=== PATIENT | male | born 1965 | race Caucasian/White ===

== ENCOUNTER 2021-04-21 10:45 | Inpatient (IN) | payer BC, OTHER ==
[2021-04-21] MEDS ORDERED: Sodium Chloride 0.9% 10 ML Syringe FLUSH PRN ×2 (11:09→14:42)
[2021-04-21 11:53] LABS: CORONAVIRUS COVID-19 NAA POSITIVE (NEGATIVE)
--- NOTE | 2021-04-21 11:59 | EDM.PDOC ---
ED HPI GENERAL MEDICAL PROBLEM - General Chief Complaint: Respiratory Problem Stated Complaint: SHORTNESS OF BREATH Time Seen by Provider: 04/21/21 11:00 Source of Information: Reports: Patient, Old Records History Limitations: Reports: No Limitations - History of Present Illness INITIAL COMMENTS - FREE TEXT/NARRATIVE: 55 yo male here with several days of progressive SOB. No hx of lung dz. No fever. No Covid vaccines. Has not been to the doctor since he got ill. Onset: Gradual Duration: Day(s): (approx 5), Getting Worse Location: Reports: Chest Quality: Reports: Other (no pain) Severity: Moderate Improves with: Reports: None Worsens with: Reports: Other (time or exertion) Context: Reports: Other (see HPI) Associated Symptoms: Reports: Loss of Appetite, Malaise, Shortness of Breath. Denies: Diaphoresis Treatments INSTRUMENT ADJUSTER: Reports: Other (see below) (none) - Related Data Allergies Allergy/AdvReac Type Severity Reaction Status Date / Time No Known Allergies Allergy Verified 04/21/21 10:51 Home Meds: Home Meds NK [No Known Home Meds] 04/21/21 [History] Past Medical History - Past Health History Medical/Surgical History: Denies Medical/Surgical History Social & Family History - Tobacco Use Tobacco Use Status *Q: Never Tobacco User - Caffeine Use Caffeine Use: Reports: Coffee - Recreational Drug Use Recreational Drug Use: No ED ROS GENERAL - Review of Systems Review Of Systems: See Below Constitutional: Reports: Malaise, Weakness HEENT: Reports: No Symptoms Respiratory: Reports: Shortness of Breath, Cough Cardiovascular: Reports: No Symptoms GI/Abdominal: Reports: Anorexia : Reports: No Symptoms Musculoskeletal: Reports: No Symptoms Skin: Reports: No Symptoms ED EXAM, GENERAL - Physical Exam Exam: See Below Exam Limited By: No Limitations General Appearance: Alert, WD/WN, Mild Distress Eye Exam: Bilateral Eye: Normal Inspection Ears: Normal External Exam, Normal Canal, Hearing Grossly Normal Ear Exam: Bilateral Ear: Auricle Normal, Canal Normal Nose: Normal Inspection, No Blood Throat/Mouth: Normal Inspection, Normal Lips, Normal Oropharynx, Normal Voice, No Airway Compromise Head: Atraumatic, Normocephalic Neck: Normal Inspection Respiratory/Chest: Crackles, Other (tachypnea). No: No Respiratory Distress, Lungs Clear, Normal Breath Sounds Cardiovascular: Regular Rate, Rhythm, Tachycardia GI/Abdominal: Soft, Non-Tender Back Exam: Normal Inspection Extremities: Normal Inspection, Normal Range of Motion, Non-Tender, No Pedal Edema Neurological: Alert, Oriented, CN II-XII Intact, Normal Cognition, No Motor/Sensory Deficits Psychiatric: Normal Affect, Normal Mood Skin Exam: Warm, Dry, Intact, Normal Color, No Rash Course - Vital Signs Text/Narrative:: Dr. Mahajan called @ 1209h Last Recorded V/S: Last Vital Signs Temp 36.6 C 04/21/21 10:49 Pulse 89 04/21/21 13:27 Resp 20 04/21/21 10:51 BP 122/71 04/21/21 13:27 Pulse Ox 98 04/21/21 13:27 - Orders/Labs/Meds Orders: Active Orders 24 hr Category Date Time Status Patient Status Manage Transfer [TRANSFER] Routine ADT 04/21/21 12:45 Active Ang Chest [CT] Stat Exams 04/21/21 11:58 Ordered UA W/MICROSCOPIC [URIN] Stat Lab 04/21/21 11:09 Ordered Iopamidol [Isovue-370 (76%)] Med 04/21/21 14:00 Active 78 ml IV . DIRECTED Sodium Chloride 0.9% [Saline Flush] Med 04/21/21 11:09 Active 10 ml FLUSH ASDIRECTED PRN Saline Lock Insert [OM.PC] Routine Oth 04/21/21 11:09 Ordered Resuscitation Status Routine Resus Stat 04/21/21 12:46 Ordered Medication Orders Iopamidol (Iopamidol 755 Mg/Ml 100 Ml Bottle) 78 ml IV . DIRECTED BRENDA Stop: 04/21/21 15:00 Sodium Chloride (Sodium Chloride 0.9% 10 Ml Syringe) 10 ml FLUSH ASDIRECTED PRN PRN Reason: Keep Vein Open Labs: Laboratory Tests 04/21/21 04/21/21 04/21/21 Range/Units 11:03 11:19 11:19 WBC 13.5 H (4.5-11.0) K/uL RBC 4.06 L (4.30-5.90) M/uL Hgb 8.4 L (12.0-15.0) g/dL Hct 30.7 L (40.0-54.0) % MCV 76 L (80-98) fL MCH 21 L (27-31) pg MCHC 27 L (32-36) % Plt Count 241 (150-400) K/uL D-Dimer, Quantitative > 47914.00 H (0.0-500.0) ng/mL Sodium (140-148) mmol/L Potassium (3.6-5.2) mmol/L Chloride (100-108) mmol/L Carbon Dioxide (21-32) mmol/L Anion Gap (5.0-14.0) mmol/L BUN (7-18) mg/dL Creatinine (0.8-1.3) mg/dL Est Cr Clr Drug Dosing mL/min Estimated GFR (MDRD) (>60) Glucose (74-106) mg/dL Calcium (8.5-10.1) mg/dL C-Reactive Protein (0.0-0.3) mg/dL Influenza Type A RNA Negative (NEGATIVE) RSV RNA (INAAT) Negative (NEGATIVE) Influenza Type B RNA Negative (NEGATIVE) SARS-CoV-2 RNA (MELIDA) Positive H (NEGATIVE) 04/21/21 Range/Units 11:19 WBC (4.5-11.0) K/uL RBC (4.30-5.90) M/uL Hgb (12.0-15.0) g/dL Hct (40.0-54.0) % MCV (80-98) fL MCH (27-31) pg MCHC (32-36) % Plt Count (150-400) K/uL D-Dimer, Quantitative (0.0-500.0) ng/mL Sodium 142 (140-148) mmol/L Potassium 3.6 (3.6-5.2) mmol/L Chloride 104 (100-108) mmol/L Carbon Dioxide 25 (21-32) mmol/L Anion Gap 12.7 (5.0-14.0) mmol/L BUN 15 (7-18) mg/dL Creatinine 1.0 (0.8-1.3) mg/dL Est Cr Clr Drug Dosing 73.46 mL/min Estimated GFR (MDRD) > 60 (>60) Glucose 184 H (74-106) mg/dL Calcium 8.2 L (8.5-10.1) mg/dL C-Reactive Protein 14.63 H (0.0-0.3) mg/dL Influenza Type A RNA (NEGATIVE) RSV RNA (INAAT) (NEGATIVE) Influenza Type B RNA (NEGATIVE) SARS-CoV-2 RNA (MELIDA) (NEGATIVE) Meds: Medications Generic Name Dose Route Start Last Admin Trade Name Bryan PRN Reason Stop Dose Admin Iopamidol 78 ml 04/21/21 14:00 Iopamidol 755 Mg/Ml 100 Ml Bottle IV 04/21/21 15:00 . DIRECTED BRENDA Sodium Chloride 10 ml 04/21/21 11:09 Sodium Chloride 0.9% 10 Ml Syringe FLUSH ASDIRECTED PRN Keep Vein Open Discontinued Medications Generic Name Dose Route Start Last Admin Trade Name Freq PRN Reason Stop Dose Admin Sodium Chloride 100 mls @ 3.5 mls/sec 04/21/21 14:00 Normal Saline IV 04/21/21 14:01 ASDIRECTED BRENDA Sodium Chloride 10 ml 04/21/21 13:58 Sodium Chloride 0.9% 10 Ml Syringe FLUSH 04/21/21 13:59 ONETIME ONE - Radiology Interpretation Free Text/Narrative:: CTA chest- CT Results Date: 04/21/21 Departure - Departure Time of Disposition: 14:40 Disposition: Admitted As Inpatient 67 Clinical Impression: COVID-19, Hypoxia, Elevated d-dimer - Discharge Information *PRESCRIPTION DRUG MONITORING PROGRAM REVIEWED*: Not Applicable *COPY OF PRESCRIPTION DRUG MONITORING REPORT IN PATIENT TAMARA: Not Applicable Referrals: PCP,None [Primary Care Provider] - Forms: ED Department Discharge Sepsis Event Note (ED) - Focused Exam Vital Signs: Vital Signs Temp Pulse Resp BP Pulse Ox 04/21/21 13:27 89 122/71 98 04/21/21 10:51 107 H 20 108/69 96 04/21/21 10:49 36.6 C 108 H 20 112/75 81 L - My Orders Last 24 Hours: My Active Orders 04/21/21 11:09 UA W/MICROSCOPIC [URIN] Stat Sodium Chloride 0.9% [Saline Flush] 10 ml FLUSH ASDIRECTED PRN Saline Lock Insert [OM.PC] Routine 04/21/21 11:58 Ang Chest [CT] Stat 04/21/21 14:00 Iopamidol [Isovue-370 (76%)] 78 ml IV . DIRECTED - Assessment/Plan Last 24 Hours: My Active Orders 04/21/21 11:09 UA W/MICROSCOPIC [URIN] Stat Sodium Chloride 0.9% [Saline Flush] 10 ml FLUSH ASDIRECTED PRN Saline Lock Insert [OM.PC] Routine 04/21/21 11:58 Ang Chest [CT] Stat 04/21/21 14:00 Iopamidol [Isovue-370 (76%)] 78 ml IV . DIRECTED
--- NOTE | 2021-04-21 12:51 | PCM.HP.2 ---
H&P History of Present Illness - General Date of Service: 04/21/21 Admit Problem/Dx: Admission Diagnosis/Problem Admission Diagnosis/Problem Hypoxia Source of Information: Patient, Provider, RN Notes Reviewed History Limitations: Reports: No Limitations - History of Present Illness Initial Comments - Free Text/Narative: Mr. Lal is a 55-year-old gentleman who was admitted through the emergency department with progressive weakness, shortness of breath, and hypoxia, sec ondary to COVID-19 infection. He reports onset of symptoms 8 days ago on April 13. Over the past few days he has become progressively more weak and short of breath. On evaluation in the emergency department he was found to have significant hypoxia with an oxygen saturation of 80% on room air and while at rest. White blood cell count is mildly elevated at 13,500. D- dimer markedly elevated at greater than 10,000 with a C-reactive protein of 14.6. Because of the elevated D-dimer CT scan of the chest with PE protocol is pending at the time of this dictation. - Related Data Allergies/Adverse Reactions: Allergies Allergy/AdvReac Type Severity Reaction Status Date / Time No Known Allergies Allergy Verified 04/21/21 10:51 Home Medications: Home Meds NK [No Known Home Meds] 04/21/21 [History] Past Medical History - Past Health History Medical/Surgical History: Denies Medical/Surgical History Social & Family History - Tobacco Use Tobacco Use Status *Q: Never Tobacco User - Caffeine Use Caffeine Use: Reports: Coffee - Recreational Drug Use Recreational Drug Use: No H&P Review of Systems - Review of Systems: Review Of Systems: See Below General: Reports: Malaise, Weakness, Fatigue, Decreased Appetite. Denies: Fever, Chills HEENT: Reports: No Symptoms Pulmonary: Reports: Shortness of Breath, Cough. Denies: Wheezing, Pleuritic Chest Pain, Sputum, Hemoptysis Cardiovascular: Reports: Dyspnea on Exertion. Denies: Chest Pain, Palpitations, Orthopnea, PND, Edema, Lightheadedness Gastrointestinal: Reports: No Symptoms Genitourinary: Reports: No Symptoms Musculoskeletal: Reports: Muscle Pain, Muscle Stiffness. Denies: Joint Pain, Joint Swelling Skin: Reports: No Symptoms Psychiatric: Reports: No Symptoms Neurological: Reports: No Symptoms Hematologic/Lymphatic: Reports: No Symptoms Immunologic: Reports: No Symptoms Exam - Exam Exam: See Below - Vital Signs Vital Signs: Last Vital Signs Temp 97.9 F 04/21/21 10:49 Pulse 107 H 04/21/21 10:51 Resp 20 04/21/21 10:51 BP 108/69 04/21/21 10:51 Pulse Ox 96 04/21/21 10:51 Weight: 225 lb - Exam Quality Assessment: Supplemental Oxygen, DVT Prophylaxis General: Alert, Oriented, Cooperative, Mild Distress HEENT: Conjunctiva Clear, Hearing Intact, Normal Nasal Septum, Posterior Pharynx Clear, Pupils Equal. No: Mucosa Moist & [place] Neck: Supple, Trachea Midline, +2 Carotid Pulse wo Bruit Lungs: Normal Respiratory Effort, Crackles. No: Rales, Rhonchi, Wheezing Cardiovascular: Regular Rate, Regular Rhythm, Normal S1, Normal S2 GI/Abdominal Exam: No: Normal Bowel Sounds, Soft Back Exam: Normal Inspection, Full Range of Motion Extremities: Non-Tender, No Pedal Edema Skin: Warm, Dry, Intact Neurological: Cranial Nerves Intact, Strength Equal Bilateral, Normal Speech, Normal Tone, Sensation Intact. No: Focal Deficit Neuro Extensive - Mental Status: Alert, Oriented x3, Normal Mood/Affect, Normal Cognition, Memory Intact - Patient Data Lab Results Last 24 hrs: Laboratory Results - last 24 hr 04/21/21 04/21/21 04/21/21 Range/Units 11:03 11:19 11:19 WBC 13.5 H (4.5-11.0) K/uL RBC 4.06 L (4.30-5.90) M/uL Hgb 8.4 L (12.0-15.0) g/dL Hct 30.7 L (40.0-54.0) % MCV 76 L (80-98) fL MCH 21 L (27-31) pg MCHC 27 L (32-36) % Plt Count 241 (150-400) K/uL D-Dimer, Quantitative > 67053.00 H (0.0-500.0) ng/mL Sodium (140-148) mmol/L Potassium (3.6-5.2) mmol/L Chloride (100-108) mmol/L Carbon Dioxide (21-32) mmol/L Anion Gap (5.0-14.0) mmol/L BUN (7-18) mg/dL Creatinine (0.8-1.3) mg/dL Est Cr Clr Drug Dosing mL/min Estimated GFR (MDRD) (>60) Glucose (74-106) mg/dL Calcium (8.5-10.1) mg/dL C-Reactive Protein (0.0-0.3) mg/dL Influenza Type A RNA Negative (NEGATIVE) RSV RNA (INAAT) Negative (NEGATIVE) Influenza Type B RNA Negative (NEGATIVE) SARS-CoV-2 RNA (MELIDA) Positive H (NEGATIVE) 04/21/21 Range/Units 11:19 WBC (4.5-11.0) K/uL RBC (4.30-5.90) M/uL Hgb (12.0-15.0) g/dL Hct (40.0-54.0) % MCV (80-98) fL MCH (27-31) pg MCHC (32-36) % Plt Count (150-400) K/uL D-Dimer, Quantitative (0.0-500.0) ng/mL Sodium 142 (140-148) mmol/L Potassium 3.6 (3.6-5.2) mmol/L Chloride 104 (100-108) mmol/L Carbon Dioxide 25 (21-32) mmol/L Anion Gap 12.7 (5.0-14.0) mmol/L BUN 15 (7-18) mg/dL Creatinine 1.0 (0.8-1.3) mg/dL Est Cr Clr Drug Dosing 73.46 mL/min Estimated GFR (MDRD) > 60 (>60) Glucose 184 H (74-106) mg/dL Calcium 8.2 L (8.5-10.1) mg/dL C-Reactive Protein 14.63 H (0.0-0.3) mg/dL Influenza Type A RNA (NEGATIVE) RSV RNA (INAAT) (NEGATIVE) Influenza Type B RNA (NEGATIVE) SARS-CoV-2 RNA (MELIDA) (NEGATIVE) Result Diagrams: 04/21/21 11:19 04/21/21 11:19 Sepsis Event Note - Focused Exam Vital Signs: Vital Signs Temp Pulse Resp BP Pulse Ox 04/21/21 10:51 107 H 20 108/69 96 04/21/21 10:49 97.9 F 108 H 20 112/75 81 L *Q Meaningful Use (ADM) - VTE Risk Assess *Q Each Risk Factor Represents 1 Point: Age 41 - 59 years, Obesity ( BMI > 25 kg/m2), Serious lung disease including pneumonia, Other Risk Factor (COVID-19 infection) Total Score 1 Point Risk Factors: 4 Each Risk Factor Represents 2 Points: None Total Score 2 Point Risk Factors: 0 Each Risk Factor Represents 3 Points: None Total Score 3 Point Risk Factors: 0 Each Risk Factor Represents 5 Points: None Total Score 5 Point Risk Factors: 0 Venous Thromboembolism Risk Factor Score *Q: 4 Problem List Initiated/Reviewed/Updated: Yes Orders Last 24hrs: Active Orders 24 hr Category Date Time Status Patient Status Manage Transfer [TRANSFER] Routine ADT 04/21/21 12:45 Ordered Ang Chest [CT] Stat Exams 04/21/21 11:58 Ordered UA W/MICROSCOPIC [URIN] Stat Lab 04/21/21 11:09 Ordered Sodium Chloride 0.9% [Saline Flush] Med 04/21/21 11:09 Active 10 ml FLUSH ASDIRECTED PRN Saline Lock Insert [OM.PC] Routine Oth 04/21/21 11:09 Ordered Resuscitation Status Routine Resus Stat 04/21/21 12:46 Ordered Medication Orders Sodium Chloride (Sodium Chloride 0.9% 10 Ml Syringe) 10 ml FLUSH ASDIRECTED PRN PRN Reason: Keep Vein Open Assessment/Plan Comment:: ASSESSMENT AND PLAN COVID-19 INFECTION WITH HYPOXIA-symptom onset Thursday, April 13. Progressive weakness and shortness of breath over the past few days. Marked elevation in D-dimer and C-reactive protein. Potential risks and goals of remdesivir and dexamethasone therapy including side effects were reviewed with the patient and he is given informed consent to proceed. -Supplemental oxygen as needed -Encourage prone positioning -Remdesivir 200 mg IV today, then 100 mg IV daily for 4 additional days, today is day 1 of 5 -Dexamethasone 6 mg IV daily, today is day 1 -CT angiogram of the chest is pending -Limit IV fluids -Therapeutic dosing of Lovenox 1 mg/kg subcu every 12 hours, because of marked elevation in D-dimer ACUTE HYPOXIC RESPIRATORY FAILURE-secondary to COVID-19 infection -Management as above MAINTENANCE ISSUES -DVT prophylaxis; Lovenox as above -GI prophylaxis; not indicated -Hoskins catheter; not indicated -Nutrition; regular diet -Nicotine dependence; not required CODE STATUS-FULL CODE ADMISSION STATUS-patient will be admitted to inpatient status, expect at least a 2 night hospital stay for evaluation and management of problems as outlined above. At the time of this admission I do not reasonably expected evaluation and management of this problem will require more than a 96 hour hospital stay. DISPOSITION-anticipate discharge to home after the hospital stay. PRIMARY CARE PROVIDER-Dr. Rashaad Mckeon - Mortality Measure Prognosis:: Good
[2021-04-21] MEDS ORDERED: Sodium Chloride 0.9% 10 ML Syringe FLUSH ONE (13:58)
[2021-04-21] MEDS ORDERED: Iopamidol 755 Mg/ML 100 ML Bottle IV SCH (14:00)
[2021-04-21] MEDS ORDERED: Sodium Chloride 0.9% 100 ML IV SCH (14:00)
[2021-04-21] MEDS ORDERED: Ondansetron 4 MG/2 ML SDV IV PRN (14:42)
[2021-04-21] MEDS ORDERED: Polyethylene Glycol 3350 Powder 17 GM Packet PO PRN (14:42)
[2021-04-21] MEDS ORDERED: Acetaminophen 325 MG Tab PO PRN (14:42)
[2021-04-21] MEDS: Enoxaparin 100 MG/1 ML Syringe SUBCUT SCH (15:54)
[2021-04-21] MEDS ORDERED: REMDESIVIR 200 MG in Sodium Chloride 0.9% 250 ML IV ONE (16:00)
[2021-04-21] MEDS: Dexamethasone 4 MG/ML SDV IVPUSH SCH (16:05)
--- NOTE | 2021-04-21 16:11 | CRLCT ---
For Patients: As a result of the Century Cures Act, medical imaging exams and procedure reports are released immediately into your electronic medical record. You may view this report before your referring provider. If you have questions, please contact your health care provider. Indication: Shortness of breath. COVID. Elevated D-dimer. Technique: Multiple contiguous axial images were obtained from the thoracic inlet through the upper abdomen after the intravenous administration of 78 cc Isovue 370. This exam is tailored for the evaluation of the pulmonary arteries. Please note that all CT scans at this facility use dose modulation, iterative reconstruction, and/or weight-based dosing when appropriate to reduce radiation dose to as low as reasonably achievable. Comparison: None Findings: A pulmonary emboli identified in segmental branches to the right lower lobe. Pulmonary emboli are also identified extending in segmental branches to the right upper lobe and the right middle lobe. No definite pulmonary emboli are identified on the left. Mediastinal and hilar lymphadenopathy is identified, likely reactive. There is no evidence of right heart strain. The heart is normal in size. No pericardial effusions identified. No axillary lymphadenopathy is identified. The visualized portions of the liver, spleen, pancreas, gallbladder, adrenals, and kidneys are normal. Patchy bilateral opacities are identified, consistent with COVID. No pleural effusion or pneumothorax is identified. Impression: Pulmonary emboli to the right upper, middle, and lower lobes. No evidence of heart strain. Patchy bilateral opacities, consistent with COVID. These findings were discussed with Dr. Rowan at the time of this dictation. Please note that all CT scans at this facility use dose modulation, iterative reconstruction, and/or weight-based dosing when appropriate to reduce radiation dose to as low as reasonably achievable. Dictated by Kary Castañeda MD @ 04/21/2021 4:10:40 PM (Electronically Signed)
[2021-04-22] MEDS: Enoxaparin 100 MG/1 ML Syringe SUBCUT SCH ×2 (03:11→15:21)
[2021-04-22] MEDS ORDERED: Benzonatate 100 MG Cap PO PRN (14:02)
--- NOTE | 2021-04-22 14:04 | PCM.PN ---
- General Info Date of Service: 04/22/21 Subjective Update: No acute events overnight. No shortness of breath at rest but is short of breath with some activity. Still having some mild pleuritic chest pain. No fevers. Strength and appetite slowly improving. Still requiring 2 L of oxygen. Functional Status: Reports: Pain Controlled, Tolerating Diet - Review of Systems General: Reports: Weakness Pulmonary: Reports: Shortness of Breath, Pleuritic Chest Pain - Patient Data Vitals - Most Recent: Last Vital Signs Temp 35.8 C L 04/22/21 10:12 Pulse 92 04/22/21 10:12 Resp 20 04/22/21 10:12 BP 101/49 L 04/22/21 10:12 Pulse Ox 98 04/22/21 10:12 Weight - Most Recent: 89.499 kg I&O - Last 24 Hours: Intake & Output 04/21/21 04/22/21 04/22/21 22:59 06:59 14:59 Intake Total 240 800 Output Total 200 Balance 40 800 Lab Results Last 24 Hours: Laboratory Results - last 24 hr 04/21/21 04/22/21 04/22/21 Range/Units 03:28 04:15 04:15 WBC 7.0 (4.5-11.0) K/uL RBC 3.92 L (4.30-5.90) M/uL Hgb 8.5 L (12.0-15.0) g/dL Hct 30.4 L (40.0-54.0) % MCV 78 L (80-98) fL MCH 22 L (27-31) pg MCHC 28 L (32-36) % Plt Count 229 (150-400) K/uL Neut % (Auto) 82.3 H (36-66) % Lymph % (Auto) 10.9 L (24-44) % Barry % (Auto) 6.5 H (2-6) % Eos % (Auto) 0.0 L (2-4) % Baso % (Auto) 0.3 (0-1) % D-Dimer, Quantitative 50903.80 H (0.0-500.0) ng/mL Sodium (140-148) mmol/L Potassium (3.6-5.2) mmol/L Chloride (100-108) mmol/L Carbon Dioxide (21-32) mmol/L Anion Gap (5.0-14.0) mmol/L BUN (7-18) mg/dL Creatinine (0.8-1.3) mg/dL Est Cr Clr Drug Dosing mL/min Estimated GFR (MDRD) (>60) Glucose (74-106) mg/dL Calcium (8.5-10.1) mg/dL Total Bilirubin (0.2-1.0) mg/dL AST (15-37) U/L ALT (12-78) U/L Alkaline Phosphatase (46-116) U/L C-Reactive Protein (0.0-0.3) mg/dL Total Protein (6.4-8.2) g/dL Albumin (3.4-5.0) g/dL Globulin (2.3-3.5) g/dL Albumin/Globulin Ratio (1.2-2.2) Urine Color Yellow (YELLOW) Urine Appearance Clear (CLEAR) Urine pH 5.5 (5.0-8.0) Ur Specific Radcliffe 1.020 (1.008-1.030) Urine Protein 30 H (NEGATIVE) mg/dL Urine Glucose (UA) 500 H (NEGATIVE) mg/dL Urine Ketones 15 H (NEGATIVE) mg/dL Urine Occult Blood Negative (NEGATIVE) Urine Nitrite Negative (NEGATIVE) Urine Bilirubin Negative (NEGATIVE) Urine Urobilinogen 4.0 H (0.2-1.0) EU/dL Ur Leukocyte Esterase Negative (NEGATIVE) Urine RBC 0-5 (0-5) Urine WBC 0-5 (0-5) Ur Epithelial Cells Few Amorphous Sediment Not seen Urine Bacteria Few Urine Mucus Not seen 04/22/21 Range/Units 04:15 WBC (4.5-11.0) K/uL RBC (4.30-5.90) M/uL Hgb (12.0-15.0) g/dL Hct (40.0-54.0) % MCV (80-98) fL MCH (27-31) pg MCHC (32-36) % Plt Count (150-400) K/uL Neut % (Auto) (36-66) % Lymph % (Auto) (24-44) % Barry % (Auto) (2-6) % Eos % (Auto) (2-4) % Baso % (Auto) (0-1) % D-Dimer, Quantitative (0.0-500.0) ng/mL Sodium 143 (140-148) mmol/L Potassium 4.4 (3.6-5.2) mmol/L Chloride 106 (100-108) mmol/L Carbon Dioxide 26 (21-32) mmol/L Anion Gap 11.0 (5.0-14.0) mmol/L BUN 18 (7-18) mg/dL Creatinine 0.8 (0.8-1.3) mg/dL Est Cr Clr Drug Dosing 91.82 mL/min Estimated GFR (MDRD) > 60 (>60) Glucose 282 H (74-106) mg/dL Calcium 8.7 (8.5-10.1) mg/dL Total Bilirubin 0.6 (0.2-1.0) mg/dL AST 27 (15-37) U/L ALT 27 (12-78) U/L Alkaline Phosphatase 88 (46-116) U/L C-Reactive Protein 16.01 H (0.0-0.3) mg/dL Total Protein 7.2 (6.4-8.2) g/dL Albumin 2.1 L (3.4-5.0) g/dL Globulin 5.1 H (2.3-3.5) g/dL Albumin/Globulin Ratio 0.4 L (1.2-2.2) Urine Color (YELLOW) Urine Appearance (CLEAR) Urine pH (5.0-8.0) Ur Specific Radcliffe (1.008-1.030) Urine Protein (NEGATIVE) mg/dL Urine Glucose (UA) (NEGATIVE) mg/dL Urine Ketones (NEGATIVE) mg/dL Urine Occult Blood (NEGATIVE) Urine Nitrite (NEGATIVE) Urine Bilirubin (NEGATIVE) Urine Urobilinogen (0.2-1.0) EU/dL Ur Leukocyte Esterase (NEGATIVE) Urine RBC (0-5) Urine WBC (0-5) Ur Epithelial Cells Amorphous Sediment Urine Bacteria Urine Mucus Med Orders - Current: Current Medications Acetaminophen (Acetaminophen 325 Mg Tab) 650 mg PO Q4H PRN PRN Reason: Pain (Mild 1-3)/fever Benzonatate (Benzonatate 100 Mg Cap) 100 mg PO Q8H PRN PRN Reason: Cough Dexamethasone (Dexamethasone 4 Mg/Ml Sdv) 6 mg IVPUSH Q24H [facility] Last Admin: 04/21/21 16:05 Dose: 6 mg Documented by: Enoxaparin Sodium (Enoxaparin 100 Mg/1 Ml Syringe) 100 mg SUBCUT Q12H [facility] Last Admin: 04/22/21 03:11 Dose: 100 mg Documented by: Remdesivir 100 mg/ Sodium (Chloride) 100 mls @ 100 mls/hr IV Q24H [facility] Stop: 04/25/21 16:59 Ondansetron HCl (Ondansetron 4 Mg/2 Ml Sdv) 4 mg IV Q4H PRN PRN Reason: Nausea/Vomiting Polyethylene Glycol (Polyethylene Glycol 3350 Powder 17 Gm Packet) 17 gm PO DAILY PRN PRN Reason: Constipation Sodium Chloride (Sodium Chloride 0.9% 10 Ml Syringe) 10 ml FLUSH ASDIRECTED PRN PRN Reason: Keep Vein Open Last Admin: 04/21/21 16:18 Dose: 10 ml Documented by: Discontinued Medications Sodium Chloride (Normal Saline) 100 mls @ 3.5 mls/sec IV ASDIRECTED [facility] Stop: 04/21/21 14:01 Last Admin: 04/21/21 16:18 Dose: 4 mls/sec Documented by: Remdesivir 200 mg/ Sodium (Chloride) 250 mls @ 250 mls/hr IV ONETIME ONE Stop: 04/21/21 16:59 Last Admin: 04/21/21 16:01 Dose: 250 mls/hr Documented by: Iopamidol (Iopamidol 755 Mg/Ml 100 Ml Bottle) 78 ml IV . DIRECTED [facility] Stop: 04/21/21 15:00 Last Admin: 04/21/21 16:18 Dose: 78 ml Documented by: Sodium Chloride (Sodium Chloride 0.9% 10 Ml Syringe) 10 ml FLUSH ASDIRECTED PRN PRN Reason: Keep Vein Open Sodium Chloride (Sodium Chloride 0.9% 10 Ml Syringe) 10 ml FLUSH ONETIME ONE Stop: 04/21/21 13:59 Last Admin: 04/21/21 15:56 Dose: 10 ml Documented by: - Exam Quality Assessment: Supplemental Oxygen General: Alert, Oriented, Cooperative, No Acute Distress Lungs: Normal Respiratory Effort. No: Wheezing GI/Abdominal Exam: Soft, No Distention Extremities: No Pedal Edema. No: Increased Warmth Psy/Mental Status: Alert, Normal Affect - Patient Data Lab Results Last 24 hrs: Laboratory Results - last 24 hr 04/21/21 04/22/21 04/22/21 Range/Units 03:28 04:15 04:15 WBC 7.0 (4.5-11.0) K/uL RBC 3.92 L (4.30-5.90) M/uL Hgb 8.5 L (12.0-15.0) g/dL Hct 30.4 L (40.0-54.0) % MCV 78 L (80-98) fL MCH 22 L (27-31) pg MCHC 28 L (32-36) % Plt Count 229 (150-400) K/uL Neut % (Auto) 82.3 H (36-66) % Lymph % (Auto) 10.9 L (24-44) % Barry % (Auto) 6.5 H (2-6) % Eos % (Auto) 0.0 L (2-4) % Baso % (Auto) 0.3 (0-1) % D-Dimer, Quantitative 35701.80 H (0.0-500.0) ng/mL Sodium (140-148) mmol/L Potassium (3.6-5.2) mmol/L Chloride (100-108) mmol/L Carbon Dioxide (21-32) mmol/L Anion Gap (5.0-14.0) mmol/L BUN (7-18) mg/dL Creatinine (0.8-1.3) mg/dL Est Cr Clr Drug Dosing mL/min Estimated GFR (MDRD) (>60) Glucose (74-106) mg/dL Calcium (8.5-10.1) mg/dL Total Bilirubin (0.2-1.0) mg/dL AST (15-37) U/L ALT (12-78) U/L Alkaline Phosphatase (46-116) U/L C-Reactive Protein (0.0-0.3) mg/dL Total Protein (6.4-8.2) g/dL Albumin (3.4-5.0) g/dL Globulin (2.3-3.5) g/dL Albumin/Globulin Ratio (1.2-2.2) Urine Color Yellow (YELLOW) Urine Appearance Clear (CLEAR) Urine pH 5.5 (5.0-8.0) Ur Specific Radcliffe 1.020 (1.008-1.030) Urine Protein 30 H (NEGATIVE) mg/dL Urine Glucose (UA) 500 H (NEGATIVE) mg/dL Urine Ketones 15 H (NEGATIVE) mg/dL Urine Occult Blood Negative (NEGATIVE) Urine Nitrite Negative (NEGATIVE) Urine Bilirubin Negative (NEGATIVE) Urine Urobilinogen 4.0 H (0.2-1.0) EU/dL Ur Leukocyte Esterase Negative (NEGATIVE) Urine RBC 0-5 (0-5) Urine WBC 0-5 (0-5) Ur Epithelial Cells Few Amorphous Sediment Not seen Urine Bacteria Few Urine Mucus Not seen 04/22/21 Range/Units 04:15 WBC (4.5-11.0) K/uL RBC (4.30-5.90) M/uL Hgb (12.0-15.0) g/dL Hct (40.0-54.0) % MCV (80-98) fL MCH (27-31) pg MCHC (32-36) % Plt Count (150-400) K/uL Neut % (Auto) (36-66) % Lymph % (Auto) (24-44) % Barry % (Auto) (2-6) % Eos % (Auto) (2-4) % Baso % (Auto) (0-1) % D-Dimer, Quantitative (0.0-500.0) ng/mL Sodium 143 (140-148) mmol/L Potassium 4.4 (3.6-5.2) mmol/L Chloride 106 (100-108) mmol/L Carbon Dioxide 26 (21-32) mmol/L Anion Gap 11.0 (5.0-14.0) mmol/L BUN 18 (7-18) mg/dL Creatinine 0.8 (0.8-1.3) mg/dL Est Cr Clr Drug Dosing 91.82 mL/min Estimated GFR (MDRD) > 60 (>60) Glucose 282 H (74-106) mg/dL Calcium 8.7 (8.5-10.1) mg/dL Total Bilirubin 0.6 (0.2-1.0) mg/dL AST 27 (15-37) U/L ALT 27 (12-78) U/L Alkaline Phosphatase 88 (46-116) U/L C-Reactive Protein 16.01 H (0.0-0.3) mg/dL Total Protein 7.2 (6.4-8.2) g/dL Albumin 2.1 L (3.4-5.0) g/dL Globulin 5.1 H (2.3-3.5) g/dL Albumin/Globulin Ratio 0.4 L (1.2-2.2) Urine Color (YELLOW) Urine Appearance (CLEAR) Urine pH (5.0-8.0) Ur Specific Radcliffe (1.008-1.030) Urine Protein (NEGATIVE) mg/dL Urine Glucose (UA) (NEGATIVE) mg/dL Urine Ketones (NEGATIVE) mg/dL Urine Occult Blood (NEGATIVE) Urine Nitrite (NEGATIVE) Urine Bilirubin (NEGATIVE) Urine Urobilinogen (0.2-1.0) EU/dL Ur Leukocyte Esterase (NEGATIVE) Urine RBC (0-5) Urine WBC (0-5) Ur Epithelial Cells Amorphous Sediment Urine Bacteria Urine Mucus Result Diagrams: 04/22/21 04:15 04/22/21 04:15 Sepsis Event Note - Evaluation Sepsis Screening Result: No Definite Risk - Focused Exam Vital Signs: Vital Signs Temp Pulse Resp BP Pulse Ox 04/22/21 10:12 35.8 C L 92 20 101/49 L 98 04/22/21 07:06 95 04/22/21 07:00 35.2 C L 77 20 120/58 L 95 - Problem List Review Problem List Initiated/Reviewed/Updated: Yes - My Orders Last 24 Hours: My Active Orders 04/22/21 14:02 Benzonatate [Tessalon Perles] 100 mg PO Q8H PRN 04/23/21 05:00 CBC W/O DIFF,HEMOGRAM [HEME] Timed (1) COMPREHENSIVE METABOLIC PN,CMP [CHEM] Timed CRP [C-REACTIVE PROTEIN] [CHEM] Timed D-DIMER QUANTITATIVE [COAG] Timed FERRITIN [CHEM] Timed IRON/TIBC [CHEM] Timed - Plan Plan:: ASSESSMENT AND PLAN - COVID-19 INFECTION WITH HYPOXIA-symptom onset April 13. Respiratory status stable. Tolerating treatment so far. -Supplemental oxygen as needed -Encourage prone positioning -Remdesivir x5 days (day 2 of 5) -Dexamethasone 6 mg IV daily, today is day 2 -Limit IV fluids -Therapeutic dosing of Lovenox 1 mg/kg subcu every 12 hours, because of marked elevation in D-dimer RIGHT-SIDED PULMONARY EMBOLI-noted on CT scan that was completed after admission. The certainly could be contributing to his respiratory status and pleuritic chest pain. Stable to slowly improving. -Continue enoxaparin, consider transition to NOAC ACUTE HYPOXIC RESPIRATORY FAILURE-secondary to COVID-19 infection and pulmonary emboli. -Management as above MAINTENANCE ISSUES -DVT prophylaxis; Lovenox as above -GI prophylaxis; not indicated -Hoskins catheter; not indicated -Nutrition; regular diet DISPOSITION-anticipate discharge to home after the hospital stay. Bear Dennis MD
[2021-04-22] MEDS: REMDESIVIR 100 MG in Sodium Chloride 0.9% 100 ML IV SCH (15:21)
[2021-04-22] MEDS: Dexamethasone 4 MG/ML SDV IVPUSH SCH (15:22)
[2021-04-23] MEDS: Enoxaparin 100 MG/1 ML Syringe SUBCUT SCH (03:49)
[2021-04-23] MEDS: Insulin Lispro 100 Unit/ML 3 ML KwikPen SUBCUT SCH ×3 (12:06→21:26)
--- NOTE | 2021-04-23 14:29 | PCM.PN ---
- General Info Date of Service: 04/23/21 Subjective Update: No acute events overnight. Shortness of breath is a little better today. Down to 1.5 L of supplemental oxygen. No nausea or abdominal pain. Occasional cough. Str ength slowly improving. Hemoglobin slightly lower today at 7.5. Iron studies suggested iron deficiency. We did discuss blood transfusion and I think with his pulmonary emboli and Covid infection he would benefit from blood transfusion at his current level. He was agreeable to this. Functional Status: Reports: Pain Controlled, Tolerating Diet - Review of Systems Pulmonary: Reports: Shortness of Breath Cardiovascular: Denies: Chest Pain - Patient Data Vitals - Most Recent: Last Vital Signs Temp 36.4 C 04/23/21 10:34 Pulse 100 04/23/21 10:34 Resp 18 04/23/21 10:34 BP 106/58 L 04/23/21 10:34 Pulse Ox 97 04/23/21 13:13 Weight - Most Recent: 89.358 kg I&O - Last 24 Hours: Intake & Output 04/22/21 04/23/21 04/23/21 22:59 06:59 14:59 Intake Total 500 500 700 Balance 500 500 700 Lab Results Last 24 Hours: Laboratory Results - last 24 hr 04/23/21 04/23/21 04/23/21 Range/Units 04:25 04:25 04:25 WBC 11.2 H (4.5-11.0) K/uL RBC 3.64 L (4.30-5.90) M/uL Hgb 7.6 L (12.0-15.0) g/dL Hct 28.1 L (40.0-54.0) % MCV 77 L (80-98) fL MCH 21 L (27-31) pg MCHC 27 L (32-36) % Plt Count 249 (150-400) K/uL D-Dimer, Quantitative 4644.56 H (0.0-500.0) ng/mL Sodium 141 (140-148) mmol/L Potassium 4.4 (3.6-5.2) mmol/L Chloride 106 (100-108) mmol/L Carbon Dioxide 26 (21-32) mmol/L Anion Gap 8.7 (5.0-14.0) mmol/L BUN 19 H (7-18) mg/dL Creatinine 0.8 (0.8-1.3) mg/dL Est Cr Clr Drug Dosing 91.82 mL/min Estimated GFR (MDRD) > 60 (>60) Glucose 298 H (74-106) mg/dL POC Glucose (74-106) mg/dL Calcium 8.2 L (8.5-10.1) mg/dL Iron (65-175) ug/dL TIBC (250-450) ug/dl % Saturation (20-55) % Ferritin 112 (8-388) ng/ml Total Bilirubin 0.4 (0.2-1.0) mg/dL AST 25 (15-37) U/L ALT 20 (12-78) U/L Alkaline Phosphatase 74 (46-116) U/L C-Reactive Protein 7.74 H (0.0-0.3) mg/dL Total Protein 6.6 (6.4-8.2) g/dL Albumin 2.0 L (3.4-5.0) g/dL Globulin 4.6 H (2.3-3.5) g/dL Albumin/Globulin Ratio 0.4 L (1.2-2.2) Blood Type Gel Antibody Screen Crossmatch 04/23/21 04/23/21 04/23/21 Range/Units 04:25 11:00 11:35 WBC (4.5-11.0) K/uL RBC (4.30-5.90) M/uL Hgb (12.0-15.0) g/dL Hct (40.0-54.0) % MCV (80-98) fL MCH (27-31) pg MCHC (32-36) % Plt Count (150-400) K/uL D-Dimer, Quantitative (0.0-500.0) ng/mL Sodium (140-148) mmol/L Potassium (3.6-5.2) mmol/L Chloride (100-108) mmol/L Carbon Dioxide (21-32) mmol/L Anion Gap (5.0-14.0) mmol/L BUN (7-18) mg/dL Creatinine (0.8-1.3) mg/dL Est Cr Clr Drug Dosing mL/min Estimated GFR (MDRD) (>60) Glucose (74-106) mg/dL POC Glucose 204 H (74-106) mg/dL Calcium (8.5-10.1) mg/dL Iron 23 L (65-175) ug/dL TIBC 227 L (250-450) ug/dl % Saturation 10 L (20-55) % Ferritin (8-388) ng/ml Total Bilirubin (0.2-1.0) mg/dL AST (15-37) U/L ALT (12-78) U/L Alkaline Phosphatase (46-116) U/L C-Reactive Protein (0.0-0.3) mg/dL Total Protein (6.4-8.2) g/dL Albumin (3.4-5.0) g/dL Globulin (2.3-3.5) g/dL Albumin/Globulin Ratio (1.2-2.2) Blood Type O POSITIVE Gel Antibody Screen Negative Crossmatch See Detail Med Orders - Current: Current Medications Acetaminophen (Acetaminophen 325 Mg Tab) 650 mg PO Q4H PRN PRN Reason: Pain (Mild 1-3)/fever Benzonatate (Benzonatate 100 Mg Cap) 100 mg PO Q8H PRN PRN Reason: Cough Last Admin: 04/22/21 23:03 Dose: 100 mg Documented by: Dexamethasone (Dexamethasone 4 Mg/Ml Sdv) 6 mg IVPUSH Q24H [facility] Last Admin: 04/22/21 15:22 Dose: 6 mg Documented by: Enoxaparin Sodium (Enoxaparin 100 Mg/1 Ml Syringe) 90 mg SUBCUT Q12H [facility] Remdesivir 100 mg/ Sodium (Chloride) 100 mls @ 100 mls/hr IV Q24H [facility] Stop: 04/25/21 16:59 Last Admin: 04/22/21 15:21 Dose: 100 mls/hr Documented by: Insulin Human Lispro (Insulin Lispro 100 Unit/Ml 3 Ml Kwikpen) 0 unit SUBCUT QIDACANDBED [facility]; Protocol Last Admin: 04/23/21 12:06 Dose: 4 units Documented by: Ondansetron HCl (Ondansetron 4 Mg/2 Ml Sdv) 4 mg IV Q4H PRN PRN Reason: Nausea/Vomiting Polyethylene Glycol (Polyethylene Glycol 3350 Powder 17 Gm Packet) 17 gm PO DAILY PRN PRN Reason: Constipation Sodium Chloride (Sodium Chloride 0.9% 10 Ml Syringe) 10 ml FLUSH ASDIRECTED PRN PRN Reason: Keep Vein Open Last Admin: 04/21/21 16:18 Dose: 10 ml Documented by: Discontinued Medications Enoxaparin Sodium (Enoxaparin 100 Mg/1 Ml Syringe) 100 mg SUBCUT Q12H [facility] Last Admin: 04/23/21 03:49 Dose: 100 mg Documented by: Sodium Chloride (Normal Saline) 100 mls @ 3.5 mls/sec IV ASDIRECTED [facility] Stop: 04/21/21 14:01 Last Admin: 04/21/21 16:18 Dose: 4 mls/sec Documented by: Remdesivir 200 mg/ Sodium (Chloride) 250 mls @ 250 mls/hr IV ONETIME ONE Stop: 04/21/21 16:59 Last Admin: 04/21/21 16:01 Dose: 250 mls/hr Documented by: Iopamidol (Iopamidol 755 Mg/Ml 100 Ml Bottle) 78 ml IV . DIRECTED [facility] Stop: 04/21/21 15:00 Last Admin: 04/21/21 16:18 Dose: 78 ml Documented by: Sodium Chloride (Sodium Chloride 0.9% 10 Ml Syringe) 10 ml FLUSH ASDIRECTED PRN PRN Reason: Keep Vein Open Sodium Chloride (Sodium Chloride 0.9% 10 Ml Syringe) 10 ml FLUSH ONETIME ONE Stop: 04/21/21 13:59 Last Admin: 04/21/21 15:56 Dose: 10 ml Documented by: - Exam Quality Assessment: Supplemental Oxygen General: Alert, Oriented, Cooperative, No Acute Distress Lungs: Normal Respiratory Effort. No: Wheezing GI/Abdominal Exam: Soft, No Distention Skin: Warm, Dry Psy/Mental Status: Alert, Normal Affect - Patient Data Lab Results Last 24 hrs: Laboratory Results - last 24 hr 04/23/21 04/23/21 04/23/21 Range/Units 04:25 04:25 04:25 WBC 11.2 H (4.5-11.0) K/uL RBC 3.64 L (4.30-5.90) M/uL Hgb 7.6 L (12.0-15.0) g/dL Hct 28.1 L (40.0-54.0) % MCV 77 L (80-98) fL MCH 21 L (27-31) pg MCHC 27 L (32-36) % Plt Count 249 (150-400) K/uL D-Dimer, Quantitative 4644.56 H (0.0-500.0) ng/mL Sodium 141 (140-148) mmol/L Potassium 4.4 (3.6-5.2) mmol/L Chloride 106 (100-108) mmol/L Carbon Dioxide 26 (21-32) mmol/L Anion Gap 8.7 (5.0-14.0) mmol/L BUN 19 H (7-18) mg/dL Creatinine 0.8 (0.8-1.3) mg/dL Est Cr Clr Drug Dosing 91.82 mL/min Estimated GFR (MDRD) > 60 (>60) Glucose 298 H (74-106) mg/dL POC Glucose (74-106) mg/dL Calcium 8.2 L (8.5-10.1) mg/dL Iron (65-175) ug/dL TIBC (250-450) ug/dl % Saturation (20-55) % Ferritin 112 (8-388) ng/ml Total Bilirubin 0.4 (0.2-1.0) mg/dL AST 25 (15-37) U/L ALT 20 (12-78) U/L Alkaline Phosphatase 74 (46-116) U/L C-Reactive Protein 7.74 H (0.0-0.3) mg/dL Total Protein 6.6 (6.4-8.2) g/dL Albumin 2.0 L (3.4-5.0) g/dL Globulin 4.6 H (2.3-3.5) g/dL Albumin/Globulin Ratio 0.4 L (1.2-2.2) Blood Type Gel Antibody Screen Crossmatch 04/23/21 04/23/21 04/23/21 Range/Units 04:25 11:00 11:35 WBC (4.5-11.0) K/uL RBC (4.30-5.90) M/uL Hgb (12.0-15.0) g/dL Hct (40.0-54.0) % MCV (80-98) fL MCH (27-31) pg MCHC (32-36) % Plt Count (150-400) K/uL D-Dimer, Quantitative (0.0-500.0) ng/mL Sodium (140-148) mmol/L Potassium (3.6-5.2) mmol/L Chloride (100-108) mmol/L Carbon Dioxide (21-32) mmol/L Anion Gap (5.0-14.0) mmol/L BUN (7-18) mg/dL Creatinine (0.8-1.3) mg/dL Est Cr Clr Drug Dosing mL/min Estimated GFR (MDRD) (>60) Glucose (74-106) mg/dL POC Glucose 204 H (74-106) mg/dL Calcium (8.5-10.1) mg/dL Iron 23 L (65-175) ug/dL TIBC 227 L (250-450) ug/dl % Saturation 10 L (20-55) % Ferritin (8-388) ng/ml Total Bilirubin (0.2-1.0) mg/dL AST (15-37) U/L ALT (12-78) U/L Alkaline Phosphatase (46-116) U/L C-Reactive Protein (0.0-0.3) mg/dL Total Protein (6.4-8.2) g/dL Albumin (3.4-5.0) g/dL Globulin (2.3-3.5) g/dL Albumin/Globulin Ratio (1.2-2.2) Blood Type O POSITIVE Gel Antibody Screen Negative Crossmatch See Detail Result Diagrams: 04/23/21 04:25 04/23/21 04:25 Sepsis Event Note - Evaluation Sepsis Screening Result: No Definite Risk - Focused Exam Vital Signs: Vital Signs Temp Pulse Resp BP Pulse Ox 04/23/21 13:13 97 04/23/21 10:34 36.4 C 100 18 106/58 L 90 L 04/23/21 07:34 96 04/23/21 07:18 36.0 C L 68 18 107/59 L 97 04/23/21 03:49 35.6 C L 72 18 112/61 95 - Problem List Review Problem List Initiated/Reviewed/Updated: Yes - My Orders Last 24 Hours: My Active Orders 04/22/21 14:02 Benzonatate [Tessalon Perles] 100 mg PO Q8H PRN 04/23/21 08:15 Communication Order [RC] PRN Communication Order [RC] PRN Diabetes Education [RC] Click to Edit 04/23/21 11:00 PATIENT RETYPE [BBK] Routine RED BLOOD CELLS LP [BBK] Routine TYPE AND SCREEN [BBK] Routine Insulin Lispro [HumaLOG] See Protocol SUBCUT QIDACANDBED 04/23/21 14:22 Transfuse Red Blood Cells [COMM] Routine 04/23/21 16:30 GLUCOSE POC LAB TO COLLECT JPM [POC] QIDACANDBED 04/23/21 21:00 GLUCOSE POC LAB TO COLLECT JPM [POC] QIDACANDBED 04/24/21 05:00 CBC W/O DIFF,HEMOGRAM [HEME] Timed (1) COMPREHENSIVE METABOLIC PN,CMP [CHEM] Timed 04/24/21 06:00 Rivaroxaban [Xarelto] 15 mg PO Q12H 04/24/21 07:30 GLUCOSE POC LAB TO COLLECT JPM [POC] QIDACANDBED 04/24/21 11:30 GLUCOSE POC LAB TO COLLECT JPM [POC] QIDACANDBED 04/24/21 16:30 GLUCOSE POC LAB TO COLLECT JPM [POC] QIDACANDBED 04/24/21 21:00 GLUCOSE POC LAB TO COLLECT JPM [POC] QIDACANDBED 04/25/21 07:30 GLUCOSE POC LAB TO COLLECT JPM [POC] QIDACANDBED 04/25/21 11:30 GLUCOSE POC LAB TO COLLECT JPM [POC] QIDACANDBED 04/25/21 16:30 GLUCOSE POC LAB TO COLLECT JPM [POC] QIDACANDBED 04/25/21 21:00 GLUCOSE POC LAB TO COLLECT JPM [POC] QIDACANDBED 04/26/21 07:30 GLUCOSE POC LAB TO COLLECT JPM [POC] QIDACANDBED 04/26/21 11:30 GLUCOSE POC LAB TO COLLECT JPM [POC] QIDACANDBED 04/26/21 16:30 GLUCOSE POC LAB TO COLLECT JPM [POC] QIDACANDBED 04/26/21 21:00 GLUCOSE POC LAB TO COLLECT JPM [POC] QIDACANDBED 04/27/21 07:30 GLUCOSE POC LAB TO COLLECT JPM [POC] QIDACANDBED 04/27/21 11:30 GLUCOSE POC LAB TO COLLECT JPM [POC] QIDACANDBED 04/27/21 16:30 GLUCOSE POC LAB TO COLLECT JPM [POC] QIDACANDBED 04/27/21 21:00 GLUCOSE POC LAB TO COLLECT JPM [POC] QIDACANDBED 04/28/21 07:30 GLUCOSE POC LAB TO COLLECT JPM [POC] QIDACANDBED 04/28/21 11:30 GLUCOSE POC LAB TO COLLECT JPM [POC] QIDACANDBED 04/28/21 16:30 GLUCOSE POC LAB TO COLLECT JPM [POC] QIDACANDBED - Plan Plan:: ASSESSMENT AND PLAN - COVID-19 INFECTION WITH HYPOXIA-symptom onset April 13. Respiratory status stable to slowly improving. Tolerating treatment so far. -Supplemental oxygen as needed -Encourage prone positioning -Remdesivir x5 days (day 3 of 5) -Dexamethasone 6 mg IV daily, today is day 3 -Limit IV fluids -Therapeutic dosing of Lovenox 1 mg/kg subcu every 12 hours, because of marked elevation in D-dimer RIGHT-SIDED PULMONARY EMBOLI-noted on CT scan that was completed after admission. The certainly could be contributing to his respiratory status and pleuritic chest pain. Stable to slowly improving. -Continue enoxaparin, transition to rivaroxaban ACUTE HYPOXIC RESPIRATORY FAILURE-secondary to COVID-19 infection and pulmonary emboli. -Management as above IRON DEFICIENCY ANEMIA-patient reports poor diet and this could be contributing. He has never had a work-up for colon cancer and this will need to be worked up once he is done with anticoagulation. With his Covid pneumonia and pulmonary emboli I think he would benefit from a hemoglobin of 8 or greater. -Transfuse 1 unit of packed red blood cells today -Consider iron infusions over the next couple of days MAINTENANCE ISSUES -DVT prophylaxis; Lovenox as above -GI prophylaxis; not indicated -Hoskins catheter; not indicated -Nutrition; regular diet DISPOSITION-anticipate discharge to home after the hospital stay. Bear Dennis MD
[2021-04-23] MEDS ORDERED: Enoxaparin 100 MG/1 ML Syringe SUBCUT SCH (16:00)
[2021-04-23] MEDS: Dexamethasone 4 MG/ML SDV IVPUSH SCH (17:16)
[2021-04-23] MEDS: REMDESIVIR 100 MG in Sodium Chloride 0.9% 100 ML IV SCH (17:22)
[2021-04-24] MEDS: Rivaroxaban 15 MG Tab PO SCH ×2 (05:54→17:04)
[2021-04-24] MEDS: Insulin Lispro 100 Unit/ML 3 ML KwikPen SUBCUT SCH ×4 (07:58→21:33)
[2021-04-24 09:26] LABS: HEMOGLOBIN A1C 7.9 % (4.5-6.2)
[2021-04-24] MEDS ORDERED: Sodium Ferric Gluconate Cmplex 125 MG in Sodium Chloride 0.9% 100 ML IV ONE (11:00)
--- NOTE | 2021-04-24 13:24 | PCM.PN ---
- General Info Date of Service: 04/24/21 Subjective Update: No acute events overnight. Patient feels a little less short of breath again today. No chest pain. Still requiring 1 L of oxygen. Appetite is a little better. Blood sugar control is improving with sliding scale insulin. Hemoglobin A1c was 7.9. We did discuss diabetes today with his elevated hemoglobin A1c. He was agreeable to try Metformin. Functional Status: Reports: Pain Controlled, Tolerating Diet - Review of Systems General: Reports: Weakness Pulmonary: Reports: Shortness of Breath - Patient Data Vitals - Most Recent: Last Vital Signs Temp 1.8 C L 04/24/21 11:22 Pulse 93 04/24/21 11:22 Resp 18 04/24/21 11:22 BP 90/46 L 04/24/21 11:22 Pulse Ox 100 04/24/21 12:13 Weight - Most Recent: 93.485 kg I&O - Last 24 Hours: Intake & Output 04/23/21 04/24/21 04/24/21 22:59 06:59 14:59 Intake Total 1063 1090 350 Balance 1063 1090 350 Lab Results Last 24 Hours: Laboratory Results - last 24 hr 04/23/21 04/23/21 04/23/21 Range/Units 11:00 16:33 21:00 WBC (4.5-11.0) K/uL RBC (4.30-5.90) M/uL Hgb (12.0-15.0) g/dL Hct (40.0-54.0) % MCV (80-98) fL MCH (27-31) pg MCHC (32-36) % Plt Count (150-400) K/uL Sodium (140-148) mmol/L Potassium (3.6-5.2) mmol/L Chloride (100-108) mmol/L Carbon Dioxide (21-32) mmol/L Anion Gap (5.0-14.0) mmol/L BUN (7-18) mg/dL Creatinine (0.8-1.3) mg/dL Est Cr Clr Drug Dosing mL/min Estimated GFR (MDRD) (>60) Glucose (74-106) mg/dL POC Glucose 235 H 379 H (74-106) mg/dL Hemoglobin A1c (4.5-6.2) % Calcium (8.5-10.1) mg/dL Total Bilirubin (0.2-1.0) mg/dL AST (15-37) U/L ALT (12-78) U/L Alkaline Phosphatase (46-116) U/L Total Protein (6.4-8.2) g/dL Albumin (3.4-5.0) g/dL Globulin (2.3-3.5) g/dL Albumin/Globulin Ratio (1.2-2.2) Blood Type O POSITIVE Gel Antibody Screen Negative Crossmatch See Detail 04/24/21 04/24/21 04/24/21 Range/Units 05:45 05:55 05:55 WBC 8.9 (4.5-11.0) K/uL RBC 4.05 L (4.30-5.90) M/uL Hgb 9.0 L (12.0-15.0) g/dL Hct 31.7 L (40.0-54.0) % MCV 78 L (80-98) fL MCH 22 L (27-31) pg MCHC 28 L (32-36) % Plt Count 299 (150-400) K/uL Sodium 141 (140-148) mmol/L Potassium 4.3 (3.6-5.2) mmol/L Chloride 106 (100-108) mmol/L Carbon Dioxide 26 (21-32) mmol/L Anion Gap 8.7 (5.0-14.0) mmol/L BUN 19 H (7-18) mg/dL Creatinine 0.7 L (0.8-1.3) mg/dL Est Cr Clr Drug Dosing 104.94 mL/min Estimated GFR (MDRD) > 60 (>60) Glucose 290 H (74-106) mg/dL POC Glucose (74-106) mg/dL Hemoglobin A1c 7.9 H (4.5-6.2) % Calcium 8.3 L (8.5-10.1) mg/dL Total Bilirubin 0.4 (0.2-1.0) mg/dL AST 18 (15-37) U/L ALT 21 (12-78) U/L Alkaline Phosphatase 77 (46-116) U/L Total Protein 6.4 (6.4-8.2) g/dL Albumin 2.1 L (3.4-5.0) g/dL Globulin 4.3 H (2.3-3.5) g/dL Albumin/Globulin Ratio 0.5 L (1.2-2.2) Blood Type Gel Antibody Screen Crossmatch 04/24/21 04/24/21 Range/Units 07:36 11:08 WBC (4.5-11.0) K/uL RBC (4.30-5.90) M/uL Hgb (12.0-15.0) g/dL Hct (40.0-54.0) % MCV (80-98) fL MCH (27-31) pg MCHC (32-36) % Plt Count (150-400) K/uL Sodium (140-148) mmol/L Potassium (3.6-5.2) mmol/L Chloride (100-108) mmol/L Carbon Dioxide (21-32) mmol/L Anion Gap (5.0-14.0) mmol/L BUN (7-18) mg/dL Creatinine (0.8-1.3) mg/dL Est Cr Clr Drug Dosing mL/min Estimated GFR (MDRD) (>60) Glucose (74-106) mg/dL POC Glucose 247 H 202 H (74-106) mg/dL Hemoglobin A1c (4.5-6.2) % Calcium (8.5-10.1) mg/dL Total Bilirubin (0.2-1.0) mg/dL AST (15-37) U/L ALT (12-78) U/L Alkaline Phosphatase (46-116) U/L Total Protein (6.4-8.2) g/dL Albumin (3.4-5.0) g/dL Globulin (2.3-3.5) g/dL Albumin/Globulin Ratio (1.2-2.2) Blood Type Gel Antibody Screen Crossmatch Med Orders - Current: Current Medications Acetaminophen (Acetaminophen 325 Mg Tab) 650 mg PO Q4H PRN PRN Reason: Pain (Mild 1-3)/fever Benzonatate (Benzonatate 100 Mg Cap) 100 mg PO Q8H PRN PRN Reason: Cough Last Admin: 04/22/21 23:03 Dose: 100 mg Documented by: Dexamethasone (Dexamethasone 4 Mg/Ml Sdv) 6 mg IVPUSH Q24H BRENDA Last Admin: 04/23/21 17:16 Dose: 6 mg Documented by: Remdesivir 100 mg/ Sodium (Chloride) 100 mls @ 100 mls/hr IV Q24H [facility] Stop: 04/25/21 16:59 Last Admin: 04/23/21 17:22 Dose: 100 mls/hr Documented by: Insulin Human Lispro (Insulin Lispro 100 Unit/Ml 3 Ml Kwikpen) 0 unit SUBCUT QIDACANDBED [facility]; Protocol Last Admin: 04/24/21 11:19 Dose: 4 units Documented by: Ondansetron HCl (Ondansetron 4 Mg/2 Ml Sdv) 4 mg IV Q4H PRN PRN Reason: Nausea/Vomiting Polyethylene Glycol (Polyethylene Glycol 3350 Powder 17 Gm Packet) 17 gm PO DAILY PRN PRN Reason: Constipation Rivaroxaban (Rivaroxaban 15 Mg Tab) 15 mg PO Q12H [facility] Last Admin: 04/24/21 05:54 Dose: 15 mg Documented by: Sodium Chloride (Sodium Chloride 0.9% 10 Ml Syringe) 10 ml FLUSH ASDIRECTED PRN PRN Reason: Keep Vein Open Last Admin: 04/21/21 16:18 Dose: 10 ml Documented by: Discontinued Medications Enoxaparin Sodium (Enoxaparin 100 Mg/1 Ml Syringe) 100 mg SUBCUT Q12H [facility] Last Admin: 04/23/21 03:49 Dose: 100 mg Documented by: Enoxaparin Sodium (Enoxaparin 100 Mg/1 Ml Syringe) 90 mg SUBCUT Q12H [facility] Stop: 04/23/21 20:00 Last Admin: 04/23/21 17:06 Dose: 90 mg Documented by: Sodium Chloride (Normal Saline) 100 mls @ 3.5 mls/sec IV ASDIRECTED [facility] Stop: 04/21/21 14:01 Last Admin: 04/21/21 16:18 Dose: 4 mls/sec Documented by: Remdesivir 200 mg/ Sodium (Chloride) 250 mls @ 250 mls/hr IV ONETIME ONE Stop: 04/21/21 16:59 Last Admin: 04/21/21 16:01 Dose: 250 mls/hr Documented by: Ferric Sodium Gluconate Complex 125 mg/ Sodium Chloride 110 mls @ 55 mls/hr IV ONETIME ONE Stop: 04/24/21 12:59 Last Admin: 04/24/21 11:14 Dose: 55 mls/hr Documented by: Iopamidol (Iopamidol 755 Mg/Ml 100 Ml Bottle) 78 ml IV . DIRECTED BRENDA Stop: 04/21/21 15:00 Last Admin: 04/21/21 16:18 Dose: 78 ml Documented by: Sodium Chloride (Sodium Chloride 0.9% 10 Ml Syringe) 10 ml FLUSH ASDIRECTED PRN PRN Reason: Keep Vein Open Sodium Chloride (Sodium Chloride 0.9% 10 Ml Syringe) 10 ml FLUSH ONETIME ONE Stop: 04/21/21 13:59 Last Admin: 04/21/21 15:56 Dose: 10 ml Documented by: - Exam Quality Assessment: Supplemental Oxygen General: Alert, Oriented, Cooperative, No Acute Distress Lungs: Normal Respiratory Effort. No: Wheezing GI/Abdominal Exam: Soft, No Distention Extremities: No Pedal Edema Psy/Mental Status: Alert, Normal Affect - Patient Data Lab Results Last 24 hrs: Laboratory Results - last 24 hr 04/23/21 04/23/21 04/23/21 Range/Units 11:00 16:33 21:00 WBC (4.5-11.0) K/uL RBC (4.30-5.90) M/uL Hgb (12.0-15.0) g/dL Hct (40.0-54.0) % MCV (80-98) fL MCH (27-31) pg MCHC (32-36) % Plt Count (150-400) K/uL Sodium (140-148) mmol/L Potassium (3.6-5.2) mmol/L Chloride (100-108) mmol/L Carbon Dioxide (21-32) mmol/L Anion Gap (5.0-14.0) mmol/L BUN (7-18) mg/dL Creatinine (0.8-1.3) mg/dL Est Cr Clr Drug Dosing mL/min Estimated GFR (MDRD) (>60) Glucose (74-106) mg/dL POC Glucose 235 H 379 H (74-106) mg/dL Hemoglobin A1c (4.5-6.2) % Calcium (8.5-10.1) mg/dL Total Bilirubin (0.2-1.0) mg/dL AST (15-37) U/L ALT (12-78) U/L Alkaline Phosphatase (46-116) U/L Total Protein (6.4-8.2) g/dL Albumin (3.4-5.0) g/dL Globulin (2.3-3.5) g/dL Albumin/Globulin Ratio (1.2-2.2) Blood Type O POSITIVE Gel Antibody Screen Negative Crossmatch See Detail 04/24/21 04/24/21 04/24/21 Range/Units 05:45 05:55 05:55 WBC 8.9 (4.5-11.0) K/uL RBC 4.05 L (4.30-5.90) M/uL Hgb 9.0 L (12.0-15.0) g/dL Hct 31.7 L (40.0-54.0) % MCV 78 L (80-98) fL MCH 22 L (27-31) pg MCHC 28 L (32-36) % Plt Count 299 (150-400) K/uL Sodium 141 (140-148) mmol/L Potassium 4.3 (3.6-5.2) mmol/L Chloride 106 (100-108) mmol/L Carbon Dioxide 26 (21-32) mmol/L Anion Gap 8.7 (5.0-14.0) mmol/L BUN 19 H (7-18) mg/dL Creatinine 0.7 L (0.8-1.3) mg/dL Est Cr Clr Drug Dosing 104.94 mL/min Estimated GFR (MDRD) > 60 (>60) Glucose 290 H (74-106) mg/dL POC Glucose (74-106) mg/dL Hemoglobin A1c 7.9 H (4.5-6.2) % Calcium 8.3 L (8.5-10.1) mg/dL Total Bilirubin 0.4 (0.2-1.0) mg/dL AST 18 (15-37) U/L ALT 21 (12-78) U/L Alkaline Phosphatase 77 (46-116) U/L Total Protein 6.4 (6.4-8.2) g/dL Albumin 2.1 L (3.4-5.0) g/dL Globulin 4.3 H (2.3-3.5) g/dL Albumin/Globulin Ratio 0.5 L (1.2-2.2) Blood Type Gel Antibody Screen Crossmatch 04/24/21 04/24/21 Range/Units 07:36 11:08 WBC (4.5-11.0) K/uL RBC (4.30-5.90) M/uL Hgb (12.0-15.0) g/dL Hct (40.0-54.0) % MCV (80-98) fL MCH (27-31) pg MCHC (32-36) % Plt Count (150-400) K/uL Sodium (140-148) mmol/L Potassium (3.6-5.2) mmol/L Chloride (100-108) mmol/L Carbon Dioxide (21-32) mmol/L Anion Gap (5.0-14.0) mmol/L BUN (7-18) mg/dL Creatinine (0.8-1.3) mg/dL Est Cr Clr Drug Dosing mL/min Estimated GFR (MDRD) (>60) Glucose (74-106) mg/dL POC Glucose 247 H 202 H (74-106) mg/dL Hemoglobin A1c (4.5-6.2) % Calcium (8.5-10.1) mg/dL Total Bilirubin (0.2-1.0) mg/dL AST (15-37) U/L ALT (12-78) U/L Alkaline Phosphatase (46-116) U/L Total Protein (6.4-8.2) g/dL Albumin (3.4-5.0) g/dL Globulin (2.3-3.5) g/dL Albumin/Globulin Ratio (1.2-2.2) Blood Type Gel Antibody Screen Crossmatch Result Diagrams: 04/24/21 05:55 04/24/21 05:55 Sepsis Event Note - Evaluation Sepsis Screening Result: No Definite Risk - Focused Exam Vital Signs: Vital Signs Temp Pulse Resp BP BP Pulse Ox 04/24/21 12:13 100 04/24/21 11:22 1.8 C L 93 18 90/46 L 95 04/24/21 07:39 96 04/24/21 07:24 36.6 C 63 20 113/62 95 04/24/21 04:00 35.9 C L 88 18 109/83 93 L - Problem List Review Problem List Initiated/Reviewed/Updated: Yes - My Orders Last 24 Hours: My Active Orders 04/23/21 14:22 Transfuse Red Blood Cells [COMM] Routine 04/24/21 06:00 Rivaroxaban [Xarelto] 15 mg PO Q12H 04/24/21 16:30 GLUCOSE POC LAB TO COLLECT JPM [POC] QIDACANDBED 04/24/21 17:00 metFORMIN [Glucophage] 500 mg PO BIDMEALS 04/24/21 21:00 GLUCOSE POC LAB TO COLLECT JPM [POC] QIDACANDBED 04/25/21 05:00 CBC W/O DIFF,HEMOGRAM [HEME] Timed (1) COMPREHENSIVE METABOLIC PN,CMP [CHEM] Timed CRP [C-REACTIVE PROTEIN] [CHEM] Timed D-DIMER QUANTITATIVE [COAG] Timed 04/25/21 07:30 GLUCOSE POC LAB TO COLLECT JPM [POC] QIDACANDBED 04/25/21 11:30 GLUCOSE POC LAB TO COLLECT JPM [POC] QIDACANDBED 04/25/21 16:30 GLUCOSE POC LAB TO COLLECT JPM [POC] QIDACANDBED 04/25/21 21:00 GLUCOSE POC LAB TO COLLECT JPM [POC] QIDACANDBED 04/26/21 07:30 GLUCOSE POC LAB TO COLLECT JPM [POC] QIDACANDBED 04/26/21 11:30 GLUCOSE POC LAB TO COLLECT JPM [POC] QIDACANDBED 04/26/21 16:30 GLUCOSE POC LAB TO COLLECT JPM [POC] QIDACANDBED 04/26/21 21:00 GLUCOSE POC LAB TO COLLECT JPM [POC] QIDACANDBED 04/27/21 07:30 GLUCOSE POC LAB TO COLLECT JPM [POC] QIDACANDBED 04/27/21 11:30 GLUCOSE POC LAB TO COLLECT JPM [POC] QIDACANDBED 04/27/21 16:30 GLUCOSE POC LAB TO COLLECT JPM [POC] QIDACANDBED 04/27/21 21:00 GLUCOSE POC LAB TO COLLECT JPM [POC] QIDACANDBED 04/28/21 07:30 GLUCOSE POC LAB TO COLLECT JPM [POC] QIDACANDBED 04/28/21 11:30 GLUCOSE POC LAB TO COLLECT JPM [POC] QIDACANDBED 04/28/21 16:30 GLUCOSE POC LAB TO COLLECT JPM [POC] QIDACANDBED - Plan Plan:: ASSESSMENT AND PLAN - COVID-19 PNEUMONIA-symptom onset April 13. Complicated by acute respiratory failure with hypoxia respiratory status slowly improving but still requiring supplemental oxygen. Tolerating treatment so far. -Supplemental oxygen as needed -Encourage prone positioning -Remdesivir x5 days (day 4 of 5) -Dexamethasone 6 mg IV daily, today is day 4 -Limit IV fluids -Anticoagulation as discussed below RIGHT-SIDED PULMONARY EMBOLI-noted on CT scan that was completed after admission. Pleuritic chest pain resolved. Respiratory status slowly improving. -Continue rivaroxaban (plan for 3 to 6 months of treatment) TYPE 2 DIABETES MELLITUS-hemoglobin A1c of 7.9. He has had significant hyperglycemia with the steroids. -Continue sliding scale insulin -Initiate Metformin -Diabetes education IRON DEFICIENCY ANEMIA-hemoglobin responded well to transfusion. -Iron infusion today and possibly again tomorrow -Iron supplement after discharge -Outpatient work-up for GI blood loss after he has completed anticoagulation MAINTENANCE ISSUES -DVT prophylaxis; Lovenox as above -GI prophylaxis; not indicated -Hoskins catheter; not indicated -Nutrition; regular diet DISPOSITION-anticipate discharge to home after the hospital stay. Bear Dennis MD
[2021-04-24] MEDS: metFORMIN 500 MG Tab PO SCH (16:04)
[2021-04-24] MEDS: REMDESIVIR 100 MG in Sodium Chloride 0.9% 100 ML IV SCH (16:05)
[2021-04-24] MEDS: Dexamethasone 4 MG/ML SDV IVPUSH SCH (16:07)
[2021-04-25] MEDS: Rivaroxaban 15 MG Tab PO SCH ×2 (06:04→17:18)
[2021-04-25] MEDS: metFORMIN 500 MG Tab PO SCH ×2 (08:05→17:18)
[2021-04-25] MEDS: Insulin Lispro 100 Unit/ML 3 ML KwikPen SUBCUT SCH ×4 (08:05→21:10)
[2021-04-25] MEDS ORDERED: Sodium Ferric Gluconate Cmplex 125 MG in Sodium Chloride 0.9% 100 ML IV ONE (11:00)
--- NOTE | 2021-04-25 12:24 | PCM.PN ---
- General Info Date of Service: 04/25/21 Subjective Update: No acute events overnight. Still requiring supplemental oxygen at 1 to 2 L/min. He thinks he feels marginally better again today. Appetite and strength are sl ightly better. No fevers. No pleuritic chest pain. No nausea. Blood sugars do seem to be slowly improving. CRP improved over the last 48 hours and D-dimer is slightly higher. He was interested in some diabetic education. Functional Status: Reports: Pain Controlled, Tolerating Diet - Review of Systems General: Reports: Weakness. Denies: Fever Pulmonary: Reports: Shortness of Breath - Patient Data Vitals - Most Recent: Last Vital Signs Temp 36.3 C 04/25/21 11:00 Pulse 87 04/25/21 11:00 Resp 18 04/25/21 11:00 BP 97/55 L 04/25/21 11:00 Pulse Ox 98 04/25/21 11:00 Weight - Most Recent: 93.485 kg I&O - Last 24 Hours: Intake & Output 04/24/21 04/25/21 04/25/21 22:59 06:59 14:59 Intake Total 1300 Balance 1300 Lab Results Last 24 Hours: Laboratory Results - last 24 hr 04/24/21 04/24/21 04/25/21 Range/Units 16:28 21:16 04:35 WBC 8.0 (4.5-11.0) K/uL RBC 4.18 L (4.30-5.90) M/uL Hgb 9.3 L (12.0-15.0) g/dL Hct 32.8 L (40.0-54.0) % MCV 79 L (80-98) fL MCH 22 L (27-31) pg MCHC 28 L (32-36) % Plt Count 288 (150-400) K/uL D-Dimer, Quantitative (0.0-500.0) ng/mL Sodium (140-148) mmol/L Potassium (3.6-5.2) mmol/L Chloride (100-108) mmol/L Carbon Dioxide (21-32) mmol/L Anion Gap (5.0-14.0) mmol/L BUN (7-18) mg/dL Creatinine (0.8-1.3) mg/dL Est Cr Clr Drug Dosing mL/min Estimated GFR (MDRD) (>60) Glucose (74-106) mg/dL POC Glucose 197 H 343 H (74-106) mg/dL Calcium (8.5-10.1) mg/dL Total Bilirubin (0.2-1.0) mg/dL AST (15-37) U/L ALT (12-78) U/L Alkaline Phosphatase (46-116) U/L C-Reactive Protein (0.0-0.3) mg/dL Total Protein (6.4-8.2) g/dL Albumin (3.4-5.0) g/dL Globulin (2.3-3.5) g/dL Albumin/Globulin Ratio (1.2-2.2) 04/25/21 04/25/21 04/25/21 Range/Units 04:35 04:35 07:38 WBC (4.5-11.0) K/uL RBC (4.30-5.90) M/uL Hgb (12.0-15.0) g/dL Hct (40.0-54.0) % MCV (80-98) fL MCH (27-31) pg MCHC (32-36) % Plt Count (150-400) K/uL D-Dimer, Quantitative 5703.24 H (0.0-500.0) ng/mL Sodium 142 (140-148) mmol/L Potassium 4.6 (3.6-5.2) mmol/L Chloride 106 (100-108) mmol/L Carbon Dioxide 28 (21-32) mmol/L Anion Gap 8.4 (5.0-14.0) mmol/L BUN 16 (7-18) mg/dL Creatinine 0.7 L (0.8-1.3) mg/dL Est Cr Clr Drug Dosing 104.94 mL/min Estimated GFR (MDRD) > 60 (>60) Glucose 251 H (74-106) mg/dL POC Glucose 209 H (74-106) mg/dL Calcium 8.3 L (8.5-10.1) mg/dL Total Bilirubin 0.4 (0.2-1.0) mg/dL AST 21 (15-37) U/L ALT 21 (12-78) U/L Alkaline Phosphatase 73 (46-116) U/L C-Reactive Protein 2.88 H (0.0-0.3) mg/dL Total Protein 6.3 L (6.4-8.2) g/dL Albumin 2.1 L (3.4-5.0) g/dL Globulin 4.2 H (2.3-3.5) g/dL Albumin/Globulin Ratio 0.5 L (1.2-2.2) 04/25/21 Range/Units 11:31 WBC (4.5-11.0) K/uL RBC (4.30-5.90) M/uL Hgb (12.0-15.0) g/dL Hct (40.0-54.0) % MCV (80-98) fL MCH (27-31) pg MCHC (32-36) % Plt Count (150-400) K/uL D-Dimer, Quantitative (0.0-500.0) ng/mL Sodium (140-148) mmol/L Potassium (3.6-5.2) mmol/L Chloride (100-108) mmol/L Carbon Dioxide (21-32) mmol/L Anion Gap (5.0-14.0) mmol/L BUN (7-18) mg/dL Creatinine (0.8-1.3) mg/dL Est Cr Clr Drug Dosing mL/min Estimated GFR (MDRD) (>60) Glucose (74-106) mg/dL POC Glucose 177 H (74-106) mg/dL Calcium (8.5-10.1) mg/dL Total Bilirubin (0.2-1.0) mg/dL AST (15-37) U/L ALT (12-78) U/L Alkaline Phosphatase (46-116) U/L C-Reactive Protein (0.0-0.3) mg/dL Total Protein (6.4-8.2) g/dL Albumin (3.4-5.0) g/dL Globulin (2.3-3.5) g/dL Albumin/Globulin Ratio (1.2-2.2) Med Orders - Current: Current Medications Acetaminophen (Acetaminophen 325 Mg Tab) 650 mg PO Q4H PRN PRN Reason: Pain (Mild 1-3)/fever Benzonatate (Benzonatate 100 Mg Cap) 100 mg PO Q8H PRN PRN Reason: Cough Last Admin: 04/22/21 23:03 Dose: 100 mg Documented by: Dexamethasone (Dexamethasone 4 Mg/Ml Sdv) 6 mg IVPUSH Q24H ON LICENSE OF [facility] Last Admin: 04/24/21 16:07 Dose: 6 mg Documented by: Remdesivir 100 mg/ Sodium (Chloride) 100 mls @ 100 mls/hr IV Q24H ON LICENSE OF [facility] Stop: 04/25/21 16:59 Last Admin: 04/24/21 16:05 Dose: 100 mls/hr Documented by: Insulin Human Lispro (Insulin Lispro 100 Unit/Ml 3 Ml Kwikpen) 0 unit SUBCUT QIDACANDBED ON LICENSE OF [facility]; Protocol Last Admin: 04/25/21 11:52 Dose: 2 units Documented by: Metformin HCl (Metformin 500 Mg Tab) 500 mg PO BIDMEALS ON LICENSE OF [facility] Last Admin: 04/25/21 08:05 Dose: 500 mg Documented by: Ondansetron HCl (Ondansetron 4 Mg/2 Ml Sdv) 4 mg IV Q4H PRN PRN Reason: Nausea/Vomiting Polyethylene Glycol (Polyethylene Glycol 3350 Powder 17 Gm Packet) 17 gm PO DAILY PRN PRN Reason: Constipation Rivaroxaban (Rivaroxaban 15 Mg Tab) 15 mg PO Q12H ON LICENSE OF [facility] Last Admin: 04/25/21 06:04 Dose: 15 mg Documented by: Sodium Chloride (Sodium Chloride 0.9% 10 Ml Syringe) 10 ml FLUSH ASDIRECTED PRN PRN Reason: Keep Vein Open Last Admin: 04/21/21 16:18 Dose: 10 ml Documented by: Discontinued Medications Enoxaparin Sodium (Enoxaparin 100 Mg/1 Ml Syringe) 100 mg SUBCUT Q12H ON LICENSE OF [facility] Last Admin: 04/23/21 03:49 Dose: 100 mg Documented by: Enoxaparin Sodium (Enoxaparin 100 Mg/1 Ml Syringe) 90 mg SUBCUT Q12H ON LICENSE OF [facility] Stop: 04/23/21 20:00 Last Admin: 04/23/21 17:06 Dose: 90 mg Documented by: Sodium Chloride (Normal Saline) 100 mls @ 3.5 mls/sec IV ASDIRECTED ON LICENSE OF [facility] Stop: 04/21/21 14:01 Last Admin: 04/21/21 16:18 Dose: 4 mls/sec Documented by: Remdesivir 200 mg/ Sodium (Chloride) 250 mls @ 250 mls/hr IV ONETIME ONE Stop: 04/21/21 16:59 Last Admin: 04/21/21 16:01 Dose: 250 mls/hr Documented by: Ferric Sodium Gluconate Complex 125 mg/ Sodium Chloride 110 mls @ 55 mls/hr IV ONETIME ONE Stop: 04/24/21 12:59 Last Admin: 04/24/21 11:14 Dose: 55 mls/hr Documented by: Ferric Sodium Gluconate Complex 125 mg/ Sodium Chloride 110 mls @ 100 mls/hr IV ONETIME ONE Stop: 04/25/21 12:05 Last Admin: 04/25/21 11:55 Dose: 100 mls/hr Documented by: Iopamidol (Iopamidol 755 Mg/Ml 100 Ml Bottle) 78 ml IV . DIRECTED BRENDA Stop: 04/21/21 15:00 Last Admin: 04/21/21 16:18 Dose: 78 ml Documented by: Sodium Chloride (Sodium Chloride 0.9% 10 Ml Syringe) 10 ml FLUSH ASDIRECTED PRN PRN Reason: Keep Vein Open Sodium Chloride (Sodium Chloride 0.9% 10 Ml Syringe) 10 ml FLUSH ONETIME ONE Stop: 04/21/21 13:59 Last Admin: 04/21/21 15:56 Dose: 10 ml Documented by: - Exam Quality Assessment: Supplemental Oxygen General: Alert, Oriented, Cooperative, No Acute Distress Lungs: Normal Respiratory Effort. No: Wheezing GI/Abdominal Exam: Soft, No Distention Extremities: No Pedal Edema. No: Increased Warmth Skin: Warm, Dry Psy/Mental Status: Alert, Normal Affect - Patient Data Lab Results Last 24 hrs: Laboratory Results - last 24 hr 04/24/21 04/24/21 04/25/21 Range/Units 16:28 21:16 04:35 WBC 8.0 (4.5-11.0) K/uL RBC 4.18 L (4.30-5.90) M/uL Hgb 9.3 L (12.0-15.0) g/dL Hct 32.8 L (40.0-54.0) % MCV 79 L (80-98) fL MCH 22 L (27-31) pg MCHC 28 L (32-36) % Plt Count 288 (150-400) K/uL D-Dimer, Quantitative (0.0-500.0) ng/mL Sodium (140-148) mmol/L Potassium (3.6-5.2) mmol/L Chloride (100-108) mmol/L Carbon Dioxide (21-32) mmol/L Anion Gap (5.0-14.0) mmol/L BUN (7-18) mg/dL Creatinine (0.8-1.3) mg/dL Est Cr Clr Drug Dosing mL/min Estimated GFR (MDRD) (>60) Glucose (74-106) mg/dL POC Glucose 197 H 343 H (74-106) mg/dL Calcium (8.5-10.1) mg/dL Total Bilirubin (0.2-1.0) mg/dL AST (15-37) U/L ALT (12-78) U/L Alkaline Phosphatase (46-116) U/L C-Reactive Protein (0.0-0.3) mg/dL Total Protein (6.4-8.2) g/dL Albumin (3.4-5.0) g/dL Globulin (2.3-3.5) g/dL Albumin/Globulin Ratio (1.2-2.2) 04/25/21 04/25/21 04/25/21 Range/Units 04:35 04:35 07:38 WBC (4.5-11.0) K/uL RBC (4.30-5.90) M/uL Hgb (12.0-15.0) g/dL Hct (40.0-54.0) % MCV (80-98) fL MCH (27-31) pg MCHC (32-36) % Plt Count (150-400) K/uL D-Dimer, Quantitative 5703.24 H (0.0-500.0) ng/mL Sodium 142 (140-148) mmol/L Potassium 4.6 (3.6-5.2) mmol/L Chloride 106 (100-108) mmol/L Carbon Dioxide 28 (21-32) mmol/L Anion Gap 8.4 (5.0-14.0) mmol/L BUN 16 (7-18) mg/dL Creatinine 0.7 L (0.8-1.3) mg/dL Est Cr Clr Drug Dosing 104.94 mL/min Estimated GFR (MDRD) > 60 (>60) Glucose 251 H (74-106) mg/dL POC Glucose 209 H (74-106) mg/dL Calcium 8.3 L (8.5-10.1) mg/dL Total Bilirubin 0.4 (0.2-1.0) mg/dL AST 21 (15-37) U/L ALT 21 (12-78) U/L Alkaline Phosphatase 73 (46-116) U/L C-Reactive Protein 2.88 H (0.0-0.3) mg/dL Total Protein 6.3 L (6.4-8.2) g/dL Albumin 2.1 L (3.4-5.0) g/dL Globulin 4.2 H (2.3-3.5) g/dL Albumin/Globulin Ratio 0.5 L (1.2-2.2) 04/25/21 Range/Units 11:31 WBC (4.5-11.0) K/uL RBC (4.30-5.90) M/uL Hgb (12.0-15.0) g/dL Hct (40.0-54.0) % MCV (80-98) fL MCH (27-31) pg MCHC (32-36) % Plt Count (150-400) K/uL D-Dimer, Quantitative (0.0-500.0) ng/mL Sodium (140-148) mmol/L Potassium (3.6-5.2) mmol/L Chloride (100-108) mmol/L Carbon Dioxide (21-32) mmol/L Anion Gap (5.0-14.0) mmol/L BUN (7-18) mg/dL Creatinine (0.8-1.3) mg/dL Est Cr Clr Drug Dosing mL/min Estimated GFR (MDRD) (>60) Glucose (74-106) mg/dL POC Glucose 177 H (74-106) mg/dL Calcium (8.5-10.1) mg/dL Total Bilirubin (0.2-1.0) mg/dL AST (15-37) U/L ALT (12-78) U/L Alkaline Phosphatase (46-116) U/L C-Reactive Protein (0.0-0.3) mg/dL Total Protein (6.4-8.2) g/dL Albumin (3.4-5.0) g/dL Globulin (2.3-3.5) g/dL Albumin/Globulin Ratio (1.2-2.2) Result Diagrams: 04/25/21 04:35 04/25/21 04:35 Sepsis Event Note - Evaluation Sepsis Screening Result: No Definite Risk - Focused Exam Vital Signs: Vital Signs Temp Pulse Resp BP Pulse Ox 04/25/21 11:00 36.3 C 87 18 97/55 L 98 04/25/21 07:48 97 04/25/21 07:00 36.3 C 59 L 18 103/55 L 96 04/25/21 03:00 35.4 C L 65 18 107/60 95 04/25/21 01:00 97 - Problem List Review Problem List Initiated/Reviewed/Updated: Yes - My Orders Last 24 Hours: My Active Orders 04/24/21 17:00 metFORMIN [Glucophage] 500 mg PO BIDMEALS 04/25/21 Lunch Consistent Carbohydrate Diet [DIET] 04/25/21 16:30 GLUCOSE POC LAB TO COLLECT JPM [POC] QIDACANDBED 04/25/21 21:00 GLUCOSE POC LAB TO COLLECT JPM [POC] QIDACANDBED 04/26/21 07:30 GLUCOSE POC LAB TO COLLECT JPM [POC] QIDACANDBED 04/26/21 11:30 GLUCOSE POC LAB TO COLLECT JPM [POC] QIDACANDBED 04/26/21 16:30 GLUCOSE POC LAB TO COLLECT JPM [POC] QIDACANDBED 04/26/21 21:00 GLUCOSE POC LAB TO COLLECT JPM [POC] QIDACANDBED 04/27/21 07:30 GLUCOSE POC LAB TO COLLECT JPM [POC] QIDACANDBED 04/27/21 11:30 GLUCOSE POC LAB TO COLLECT JPM [POC] QIDACANDBED 04/27/21 16:30 GLUCOSE POC LAB TO COLLECT JPM [POC] QIDACANDBED 04/27/21 21:00 GLUCOSE POC LAB TO COLLECT JPM [POC] QIDACANDBED 04/28/21 07:30 GLUCOSE POC LAB TO COLLECT JPM [POC] QIDACANDBED 04/28/21 11:30 GLUCOSE POC LAB TO COLLECT JPM [POC] QIDACANDBED 04/28/21 16:30 GLUCOSE POC LAB TO COLLECT JPM [POC] QIDACANDBED - Plan Plan:: ASSESSMENT AND PLAN - COVID-19 PNEUMONIA-symptom onset April 13. Still hypoxic and requiring 1 to 2 L of supplemental oxygen. Clinically he is getting a little better. -Supplemental oxygen as needed -Encourage prone positioning -Remdesivir x5 days (day 5 of 5) -Dexamethasone 6 mg IV daily, today is day 5 -Limit IV fluids -Anticoagulation as discussed below RIGHT-SIDED PULMONARY EMBOLI-noted on CT scan that was completed after admission. Pleuritic chest pain resolved. Respiratory status slowly improving. -Continue rivaroxaban (plan for 3 to 6 months of treatment) TYPE 2 DIABETES MELLITUS-hemoglobin A1c of 7.9. Blood sugar slowly improving. -Continue sliding scale insulin -Continue Metformin -Diabetes education IRON DEFICIENCY ANEMIA-hemoglobin responded well to transfusion. -Iron infusion again today -Iron supplement after discharge -Outpatient work-up for GI blood loss after he has completed anticoagulation MAINTENANCE ISSUES -DVT prophylaxis; Lovenox as above -GI prophylaxis; not indicated -Hoskins catheter; not indicated -Nutrition; regular diet DISPOSITION-anticipate discharge to home after the hospital stay. Hopefully he will be ready for discharge in a day or 2. Bear Dennis MD
[2021-04-25] MEDS: Dexamethasone 4 MG/ML SDV IVPUSH SCH (15:51)
[2021-04-25] MEDS: REMDESIVIR 100 MG in Sodium Chloride 0.9% 100 ML IV SCH (15:52)
[2021-04-26] MEDS: Rivaroxaban 15 MG Tab PO SCH ×2 (06:38→17:03)
[2021-04-26] MEDS: Insulin Lispro 100 Unit/ML 3 ML KwikPen SUBCUT SCH ×4 (08:16→21:37)
[2021-04-26] MEDS: metFORMIN 500 MG Tab PO SCH ×2 (08:16→16:52)
--- NOTE | 2021-04-26 11:36 | PCM.PN ---
- General Info Date of Service: 04/26/21 Subjective Update: No acute events overnight. Still requiring 2 L of oxygen. No chest pain. No fevers. Blood sugars have slowly been improving. No bleeding issues with his anticoagulation. He did get a booklet to talk about diabetes yesterday. No specific questions about diabetes but he has not read much of the book as of yet. We did talk about going home and he is quite nervous at this time but hoping to be ready in the next day or 2. Functional Status: Reports: Pain Controlled, Tolerating Diet - Review of Systems General: Reports: Weakness Pulmonary: Reports: Shortness of Breath - Patient Data Vitals - Most Recent: Last Vital Signs Temp 35.3 C L 04/26/21 10:08 Pulse 110 H 04/26/21 10:08 Resp 18 04/26/21 10:08 BP 114/68 04/26/21 10:08 Pulse Ox 93 L 04/26/21 10:08 Weight - Most Recent: 93.485 kg I&O - Last 24 Hours: Intake & Output 04/25/21 04/26/21 04/26/21 22:59 06:59 14:59 Intake Total 1000 760 Balance 1000 760 Lab Results Last 24 Hours: Laboratory Results - last 24 hr 04/25/21 04/25/21 04/26/21 Range/Units 16:42 21:09 07:23 POC Glucose 162 H 355 H 192 H (74-106) mg/dL 04/26/21 Range/Units 11:30 POC Glucose 161 H (74-106) mg/dL Med Orders - Current: Current Medications Acetaminophen (Acetaminophen 325 Mg Tab) 650 mg PO Q4H PRN PRN Reason: Pain (Mild 1-3)/fever Benzonatate (Benzonatate 100 Mg Cap) 100 mg PO Q8H PRN PRN Reason: Cough Last Admin: 04/22/21 23:03 Dose: 100 mg Documented by: Insulin Human Lispro (Insulin Lispro 100 Unit/Ml 3 Ml Kwikpen) 0 unit SUBCUT QIDACANDBED [facility]; Protocol Last Admin: 04/26/21 08:16 Dose: 2 units Documented by: Metformin HCl (Metformin 500 Mg Tab) 500 mg PO BIDMEALS [facility] Last Admin: 04/26/21 08:16 Dose: 500 mg Documented by: Ondansetron HCl (Ondansetron 4 Mg/2 Ml Sdv) 4 mg IV Q4H PRN PRN Reason: Nausea/Vomiting Polyethylene Glycol (Polyethylene Glycol 3350 Powder 17 Gm Packet) 17 gm PO DAILY PRN PRN Reason: Constipation Rivaroxaban (Rivaroxaban 15 Mg Tab) 15 mg PO Q12H [facility] Last Admin: 04/26/21 06:38 Dose: 15 mg Documented by: Sodium Chloride (Sodium Chloride 0.9% 10 Ml Syringe) 10 ml FLUSH ASDIRECTED PRN PRN Reason: Keep Vein Open Last Admin: 04/21/21 16:18 Dose: 10 ml Documented by: Discontinued Medications Dexamethasone (Dexamethasone 4 Mg/Ml Sdv) 6 mg IVPUSH Q24H [facility] Last Admin: 04/25/21 15:51 Dose: 6 mg Documented by: Enoxaparin Sodium (Enoxaparin 100 Mg/1 Ml Syringe) 100 mg SUBCUT Q12H [facility] Last Admin: 04/23/21 03:49 Dose: 100 mg Documented by: Enoxaparin Sodium (Enoxaparin 100 Mg/1 Ml Syringe) 90 mg SUBCUT Q12H [facility] Stop: 04/23/21 20:00 Last Admin: 04/23/21 17:06 Dose: 90 mg Documented by: Sodium Chloride (Normal Saline) 100 mls @ 3.5 mls/sec IV ASDIRECTED [facility] Stop: 04/21/21 14:01 Last Admin: 04/21/21 16:18 Dose: 4 mls/sec Documented by: Remdesivir 200 mg/ Sodium (Chloride) 250 mls @ 250 mls/hr IV ONETIME ONE Stop: 04/21/21 16:59 Last Admin: 04/21/21 16:01 Dose: 250 mls/hr Documented by: Remdesivir 100 mg/ Sodium (Chloride) 100 mls @ 100 mls/hr IV Q24H [facility] Stop: 04/25/21 16:59 Last Admin: 04/25/21 15:52 Dose: 100 mls/hr Documented by: Ferric Sodium Gluconate Complex 125 mg/ Sodium Chloride 110 mls @ 55 mls/hr IV ONETIME ONE Stop: 04/24/21 12:59 Last Admin: 04/24/21 11:14 Dose: 55 mls/hr Documented by: Ferric Sodium Gluconate Complex 125 mg/ Sodium Chloride 110 mls @ 100 mls/hr IV ONETIME ONE Stop: 04/25/21 12:05 Last Admin: 04/25/21 11:55 Dose: 100 mls/hr Documented by: Iopamidol (Iopamidol 755 Mg/Ml 100 Ml Bottle) 78 ml IV . DIRECTED BRENDA Stop: 04/21/21 15:00 Last Admin: 04/21/21 16:18 Dose: 78 ml Documented by: Sodium Chloride (Sodium Chloride 0.9% 10 Ml Syringe) 10 ml FLUSH ASDIRECTED PRN PRN Reason: Keep Vein Open Sodium Chloride (Sodium Chloride 0.9% 10 Ml Syringe) 10 ml FLUSH ONETIME ONE Stop: 04/21/21 13:59 Last Admin: 04/21/21 15:56 Dose: 10 ml Documented by: - Exam Quality Assessment: Supplemental Oxygen General: Alert, Oriented, Cooperative, No Acute Distress Lungs: Normal Respiratory Effort. No: Wheezing Cardiovascular: Regular Rate, Regular Rhythm GI/Abdominal Exam: Soft, No Distention Psy/Mental Status: Alert, Normal Affect - Patient Data Lab Results Last 24 hrs: Laboratory Results - last 24 hr 04/25/21 04/25/21 04/26/21 Range/Units 16:42 21:09 07:23 POC Glucose 162 H 355 H 192 H (74-106) mg/dL 04/26/21 Range/Units 11:30 POC Glucose 161 H (74-106) mg/dL Result Diagrams: 04/25/21 04:35 04/25/21 04:35 Sepsis Event Note - Evaluation Sepsis Screening Result: No Definite Risk - Focused Exam Vital Signs: Vital Signs Temp Pulse Resp BP BP Pulse Ox 04/26/21 10:08 35.3 C L 110 H 18 114/68 93 L 04/26/21 07:28 96 04/26/21 07:27 97 04/26/21 07:25 35.8 C L 77 18 103/54 L 95 04/26/21 03:00 36.1 C 69 17 105/60 99 04/26/21 01:00 98 - Problem List Review Problem List Initiated/Reviewed/Updated: Yes - My Orders Last 24 Hours: My Active Orders 04/25/21 Lunch Consistent Carbohydrate Diet [DIET] 04/26/21 09:48 RT Evaluate for Home Oxygen [RC] Click to Edit 04/26/21 11:30 GLUCOSE POC LAB TO COLLECT JPM [POC] QIDACANDBED 04/26/21 16:00 dexAMETHasone 6 mg PO Q24H 04/26/21 16:30 GLUCOSE POC LAB TO COLLECT JPM [POC] QIDACANDBED 04/26/21 21:00 GLUCOSE POC LAB TO COLLECT JPM [POC] QIDACANDBED 04/27/21 05:00 BASIC METABOLIC PANEL,BMP [CHEM] Timed CBC W/O DIFF,HEMOGRAM [HEME] Timed (1) CRP [C-REACTIVE PROTEIN] [CHEM] Timed D-DIMER QUANTITATIVE [COAG] Timed 04/27/21 07:30 GLUCOSE POC LAB TO COLLECT JPM [POC] QIDACANDBED 04/27/21 11:30 GLUCOSE POC LAB TO COLLECT JPM [POC] QIDACANDBED 04/27/21 16:30 GLUCOSE POC LAB TO COLLECT JPM [POC] QIDACANDBED 04/27/21 21:00 GLUCOSE POC LAB TO COLLECT JPM [POC] QIDACANDBED 04/28/21 07:30 GLUCOSE POC LAB TO COLLECT JPM [POC] QIDACANDBED 04/28/21 11:30 GLUCOSE POC LAB TO COLLECT JPM [POC] QIDACANDBED 04/28/21 16:30 GLUCOSE POC LAB TO COLLECT JPM [POC] QIDACANDBED - Plan Plan:: ASSESSMENT AND PLAN - COVID-19 PNEUMONIA-symptom onset April 13. Still hypoxic and requiring 1 to 2 L of supplemental oxygen. Clinically he is slowly improving. -Supplemental oxygen as needed, I anticipate he will need oxygen at home -Encourage prone positioning -Remdesivir x5 days complete -Dexamethasone 6 mg daily, today is day 6 (transitioning to oral) -Limit IV fluids -Anticoagulation as discussed below RIGHT-SIDED PULMONARY EMBOLI-noted on CT scan that was completed after admission. Pleuritic chest pain resolved. Respiratory status slowly improving. -Continue rivaroxaban (plan for 3 to 6 months of treatment) TYPE 2 DIABETES MELLITUS-hemoglobin A1c of 7.9. Blood sugar slowly improving. -Continue sliding scale insulin -Continue Metformin -Diabetes education IRON DEFICIENCY ANEMIA-hemoglobin responded well to transfusion. -Iron supplement after discharge -Outpatient work-up for GI blood loss after he has completed anticoagulation MAINTENANCE ISSUES -DVT prophylaxis; Lovenox as above -GI prophylaxis; not indicated -Hosknis catheter; not indicated -Nutrition; regular diet DISPOSITION-anticipate discharge to home after the hospital stay. I would anticipate readiness for discharge in 1 or maybe 2 days. He will likely need home oxygen. Bear Dennis MD
[2021-04-26] MEDS: Dexamethasone 2 MG Tab PO SCH (16:52)
[2021-04-27] MEDS: Rivaroxaban 15 MG Tab PO SCH ×2 (05:56→17:05)
[2021-04-27] MEDS: Insulin Lispro 100 Unit/ML 3 ML KwikPen SUBCUT SCH ×4 (08:33→21:13)
[2021-04-27] MEDS: metFORMIN 500 MG Tab PO SCH ×2 (08:35→17:05)
--- NOTE | 2021-04-27 11:54 | PCM.PN ---
- General Info Date of Service: 04/27/21 Subjective Update: No acute events overnight. Respiratory status stable. Still requiring 2 L of supplemental oxygen. Functional status slowly improving with less dyspnea when he is moving around. Tolerating medications and blood sugars have slowly been improving. No fevers. No chest pain. D-dimer significantly improved and CRP slightly better. Functional Status: Reports: Pain Controlled, Tolerating Diet - Review of Systems General: Reports: Weakness Pulmonary: Reports: Shortness of Breath - Patient Data Vitals - Most Recent: Last Vital Signs Temp 35.6 C L 04/27/21 10:42 Pulse 98 04/27/21 10:42 Resp 18 04/27/21 10:42 BP 96/61 04/27/21 10:42 Pulse Ox 96 04/27/21 10:42 Weight - Most Recent: 93.485 kg I&O - Last 24 Hours: Intake & Output 04/26/21 04/27/21 04/27/21 22:59 06:59 14:59 Intake Total 400 Balance 400 Lab Results Last 24 Hours: Laboratory Results - last 24 hr 04/23/21 04/26/21 04/26/21 Range/Units 11:00 16:36 21:13 WBC (4.5-11.0) K/uL RBC (4.30-5.90) M/uL Hgb (12.0-15.0) g/dL Hct (40.0-54.0) % MCV (80-98) fL MCH (27-31) pg MCHC (32-36) % Plt Count (150-400) K/uL D-Dimer, Quantitative (0.0-500.0) ng/mL Sodium (140-148) mmol/L Potassium (3.6-5.2) mmol/L Chloride (100-108) mmol/L Carbon Dioxide (21-32) mmol/L Anion Gap (5.0-14.0) mmol/L BUN (7-18) mg/dL Creatinine (0.8-1.3) mg/dL Est Cr Clr Drug Dosing mL/min Estimated GFR (MDRD) (>60) Glucose (74-106) mg/dL POC Glucose 185 H 325 H (74-106) mg/dL Calcium (8.5-10.1) mg/dL C-Reactive Protein (0.0-0.3) mg/dL Crossmatch See Detail 04/27/21 04/27/21 04/27/21 Range/Units 04:15 04:15 04:15 WBC 10.8 (4.5-11.0) K/uL RBC 4.35 (4.30-5.90) M/uL Hgb 9.8 L (12.0-15.0) g/dL Hct 34.3 L (40.0-54.0) % MCV 79 L (80-98) fL MCH 23 L (27-31) pg MCHC 29 L (32-36) % Plt Count 287 (150-400) K/uL D-Dimer, Quantitative 4908.19 H (0.0-500.0) ng/mL Sodium 139 L (140-148) mmol/L Potassium 5.0 (3.6-5.2) mmol/L Chloride 103 (100-108) mmol/L Carbon Dioxide 27 (21-32) mmol/L Anion Gap 14.0 (5.0-14.0) mmol/L BUN 16 (7-18) mg/dL Creatinine 0.8 (0.8-1.3) mg/dL Est Cr Clr Drug Dosing 91.82 mL/min Estimated GFR (MDRD) > 60 (>60) Glucose 284 H (74-106) mg/dL POC Glucose (74-106) mg/dL Calcium 8.3 L (8.5-10.1) mg/dL C-Reactive Protein 2.05 H (0.0-0.3) mg/dL Crossmatch 04/27/21 04/27/21 Range/Units 07:28 11:41 WBC (4.5-11.0) K/uL RBC (4.30-5.90) M/uL Hgb (12.0-15.0) g/dL Hct (40.0-54.0) % MCV (80-98) fL MCH (27-31) pg MCHC (32-36) % Plt Count (150-400) K/uL D-Dimer, Quantitative (0.0-500.0) ng/mL Sodium (140-148) mmol/L Potassium (3.6-5.2) mmol/L Chloride (100-108) mmol/L Carbon Dioxide (21-32) mmol/L Anion Gap (5.0-14.0) mmol/L BUN (7-18) mg/dL Creatinine (0.8-1.3) mg/dL Est Cr Clr Drug Dosing mL/min Estimated GFR (MDRD) (>60) Glucose (74-106) mg/dL POC Glucose 238 H 191 H (74-106) mg/dL Calcium (8.5-10.1) mg/dL C-Reactive Protein (0.0-0.3) mg/dL Crossmatch Med Orders - Current: Current Medications Acetaminophen (Acetaminophen 325 Mg Tab) 650 mg PO Q4H PRN PRN Reason: Pain (Mild 1-3)/fever Benzonatate (Benzonatate 100 Mg Cap) 100 mg PO Q8H PRN PRN Reason: Cough Last Admin: 04/22/21 23:03 Dose: 100 mg Documented by: Dexamethasone (Dexamethasone 2 Mg Tab) 6 mg PO Q24H [facility] Last Admin: 04/26/21 16:52 Dose: 6 mg Documented by: Insulin Human Lispro (Insulin Lispro 100 Unit/Ml 3 Ml Kwikpen) 0 unit SUBCUT QIDACANDBED [facility]; Protocol Last Admin: 04/27/21 08:33 Dose: 6 units Documented by: Metformin HCl (Metformin 500 Mg Tab) 500 mg PO BIDMEALS [facility] Last Admin: 04/27/21 08:35 Dose: 500 mg Documented by: Ondansetron HCl (Ondansetron 4 Mg/2 Ml Sdv) 4 mg IV Q4H PRN PRN Reason: Nausea/Vomiting Polyethylene Glycol (Polyethylene Glycol 3350 Powder 17 Gm Packet) 17 gm PO DAILY PRN PRN Reason: Constipation Rivaroxaban (Rivaroxaban 15 Mg Tab) 15 mg PO Q12H [facility] Last Admin: 04/27/21 05:56 Dose: 15 mg Documented by: Sodium Chloride (Sodium Chloride 0.9% 10 Ml Syringe) 10 ml FLUSH ASDIRECTED PRN PRN Reason: Keep Vein Open Last Admin: 04/21/21 16:18 Dose: 10 ml Documented by: Discontinued Medications Dexamethasone (Dexamethasone 4 Mg/Ml Sdv) 6 mg IVPUSH Q24H [facility] Last Admin: 04/25/21 15:51 Dose: 6 mg Documented by: Enoxaparin Sodium (Enoxaparin 100 Mg/1 Ml Syringe) 100 mg SUBCUT Q12H [facility] Last Admin: 04/23/21 03:49 Dose: 100 mg Documented by: Enoxaparin Sodium (Enoxaparin 100 Mg/1 Ml Syringe) 90 mg SUBCUT Q12H [facility] Stop: 04/23/21 20:00 Last Admin: 04/23/21 17:06 Dose: 90 mg Documented by: Sodium Chloride (Normal Saline) 100 mls @ 3.5 mls/sec IV ASDIRECTED [facility] Stop: 04/21/21 14:01 Last Admin: 04/21/21 16:18 Dose: 4 mls/sec Documented by: Remdesivir 200 mg/ Sodium (Chloride) 250 mls @ 250 mls/hr IV ONETIME ONE Stop: 04/21/21 16:59 Last Admin: 04/21/21 16:01 Dose: 250 mls/hr Documented by: Remdesivir 100 mg/ Sodium (Chloride) 100 mls @ 100 mls/hr IV Q24H [facility] Stop: 04/25/21 16:59 Last Admin: 04/25/21 15:52 Dose: 100 mls/hr Documented by: Ferric Sodium Gluconate Complex 125 mg/ Sodium Chloride 110 mls @ 55 mls/hr IV ONETIME ONE Stop: 04/24/21 12:59 Last Admin: 04/24/21 11:14 Dose: 55 mls/hr Documented by: Ferric Sodium Gluconate Complex 125 mg/ Sodium Chloride 110 mls @ 100 mls/hr IV ONETIME ONE Stop: 04/25/21 12:05 Last Admin: 04/25/21 11:55 Dose: 100 mls/hr Documented by: Iopamidol (Iopamidol 755 Mg/Ml 100 Ml Bottle) 78 ml IV . DIRECTED [facility] Stop: 04/21/21 15:00 Last Admin: 04/21/21 16:18 Dose: 78 ml Documented by: Sodium Chloride (Sodium Chloride 0.9% 10 Ml Syringe) 10 ml FLUSH ASDIRECTED PRN PRN Reason: Keep Vein Open Sodium Chloride (Sodium Chloride 0.9% 10 Ml Syringe) 10 ml FLUSH ONETIME ONE Stop: 04/21/21 13:59 Last Admin: 04/21/21 15:56 Dose: 10 ml Documented by: - Exam Quality Assessment: Supplemental Oxygen General: Alert, Oriented, Cooperative, No Acute Distress Lungs: Normal Respiratory Effort. No: Wheezing GI/Abdominal Exam: Soft, No Distention Extremities: No: Increased Warmth Skin: Warm, Dry Psy/Mental Status: Alert, Normal Affect - Patient Data Lab Results Last 24 hrs: Laboratory Results - last 24 hr 04/23/21 04/26/21 04/26/21 Range/Units 11:00 16:36 21:13 WBC (4.5-11.0) K/uL RBC (4.30-5.90) M/uL Hgb (12.0-15.0) g/dL Hct (40.0-54.0) % MCV (80-98) fL MCH (27-31) pg MCHC (32-36) % Plt Count (150-400) K/uL D-Dimer, Quantitative (0.0-500.0) ng/mL Sodium (140-148) mmol/L Potassium (3.6-5.2) mmol/L Chloride (100-108) mmol/L Carbon Dioxide (21-32) mmol/L Anion Gap (5.0-14.0) mmol/L BUN (7-18) mg/dL Creatinine (0.8-1.3) mg/dL Est Cr Clr Drug Dosing mL/min Estimated GFR (MDRD) (>60) Glucose (74-106) mg/dL POC Glucose 185 H 325 H (74-106) mg/dL Calcium (8.5-10.1) mg/dL C-Reactive Protein (0.0-0.3) mg/dL Crossmatch See Detail 04/27/21 04/27/21 04/27/21 Range/Units 04:15 04:15 04:15 WBC 10.8 (4.5-11.0) K/uL RBC 4.35 (4.30-5.90) M/uL Hgb 9.8 L (12.0-15.0) g/dL Hct 34.3 L (40.0-54.0) % MCV 79 L (80-98) fL MCH 23 L (27-31) pg MCHC 29 L (32-36) % Plt Count 287 (150-400) K/uL D-Dimer, Quantitative 4908.19 H (0.0-500.0) ng/mL Sodium 139 L (140-148) mmol/L Potassium 5.0 (3.6-5.2) mmol/L Chloride 103 (100-108) mmol/L Carbon Dioxide 27 (21-32) mmol/L Anion Gap 14.0 (5.0-14.0) mmol/L BUN 16 (7-18) mg/dL Creatinine 0.8 (0.8-1.3) mg/dL Est Cr Clr Drug Dosing 91.82 mL/min Estimated GFR (MDRD) > 60 (>60) Glucose 284 H (74-106) mg/dL POC Glucose (74-106) mg/dL Calcium 8.3 L (8.5-10.1) mg/dL C-Reactive Protein 2.05 H (0.0-0.3) mg/dL Crossmatch 04/27/21 04/27/21 Range/Units 07:28 11:41 WBC (4.5-11.0) K/uL RBC (4.30-5.90) M/uL Hgb (12.0-15.0) g/dL Hct (40.0-54.0) % MCV (80-98) fL MCH (27-31) pg MCHC (32-36) % Plt Count (150-400) K/uL D-Dimer, Quantitative (0.0-500.0) ng/mL Sodium (140-148) mmol/L Potassium (3.6-5.2) mmol/L Chloride (100-108) mmol/L Carbon Dioxide (21-32) mmol/L Anion Gap (5.0-14.0) mmol/L BUN (7-18) mg/dL Creatinine (0.8-1.3) mg/dL Est Cr Clr Drug Dosing mL/min Estimated GFR (MDRD) (>60) Glucose (74-106) mg/dL POC Glucose 238 H 191 H (74-106) mg/dL Calcium (8.5-10.1) mg/dL C-Reactive Protein (0.0-0.3) mg/dL Crossmatch Result Diagrams: 04/27/21 04:15 04/27/21 04:15 Sepsis Event Note - Evaluation Sepsis Screening Result: No Definite Risk - Focused Exam Vital Signs: Vital Signs Temp Pulse Resp BP BP Pulse Ox 04/27/21 10:42 35.6 C L 98 18 96/61 96 04/27/21 07:55 35.5 C L 74 18 113/68 93 L 04/27/21 03:00 35.8 C L 16 117/64 94 L - Problem List Review Problem List Initiated/Reviewed/Updated: Yes - My Orders Last 24 Hours: My Active Orders 04/26/21 16:00 dexAMETHasone 6 mg PO Q24H 04/27/21 16:30 GLUCOSE POC LAB TO COLLECT JPM [POC] QIDACANDBED 04/27/21 21:00 GLUCOSE POC LAB TO COLLECT JPM [POC] QIDACANDBED 04/28/21 07:30 GLUCOSE POC LAB TO COLLECT JPM [POC] QIDACANDBED 04/28/21 11:30 GLUCOSE POC LAB TO COLLECT JPM [POC] QIDACANDBED 04/28/21 16:30 GLUCOSE POC LAB TO COLLECT JPM [POC] QIDACANDBED - Plan Plan:: ASSESSMENT AND PLAN - COVID-19 PNEUMONIA-symptom onset April 13. Still hypoxic and requiring 1 to 2 L of supplemental oxygen. Clinically he is slowly but steadily improving. -Supplemental oxygen as needed, I anticipate he will need oxygen at home -Encourage prone positioning -Remdesivir x5 days complete -Dexamethasone 6 mg daily, today is day 7 -Limit IV fluids -Anticoagulation as discussed below RIGHT-SIDED PULMONARY EMBOLI-noted on CT scan that was completed after admission. Pleuritic chest pain resolved. Respiratory status slowly improving. -Continue rivaroxaban (plan for 3 to 6 months of treatment) TYPE 2 DIABETES MELLITUS-hemoglobin A1c of 7.9. Blood sugar slowly improving. -Continue sliding scale insulin -Continue Metformin -Diabetes education while hospitalized and outpatient follow-up IRON DEFICIENCY ANEMIA-hemoglobin responded well to transfusion. -Iron supplement after discharge -Outpatient work-up for GI blood loss after he has completed anticoagulation MAINTENANCE ISSUES -DVT prophylaxis; rivaroxaban -GI prophylaxis; not indicated -Hoskins catheter; not indicated -Nutrition; regular diet DISPOSITION-anticipate discharge to home after the hospital stay. I would anticipate discharge home with home oxygen tomorrow. Bear Dennis MD
[2021-04-27] MEDS: Dexamethasone 2 MG Tab PO SCH (17:06)
[2021-04-28] MEDS: Rivaroxaban 15 MG Tab PO SCH (06:12)
[2021-04-28] MEDS: Insulin Lispro 100 Unit/ML 3 ML KwikPen SUBCUT SCH (07:50)
[2021-04-28] MEDS: metFORMIN 500 MG Tab PO SCH (07:50)
--- NOTE | 2021-04-28 11:41 | PCM.DCSUM1 ---
Discharge Summary - Hospital Course Brief History: 55-year-old male with obesity and a BMI greater than 30 who presented with increasing cough and shortness of breath. He is admitted for management of complicated by acute respiratory failure with hypoxia. Diagnosis: Stroke: No - Discharge Data Discharge Date: 04/28/21 Discharge Disposition: Home, Self-Care 01 Condition: Good - Referral to Home Health Primary Care Physician: PCP None - Discharge Diagnosis/Problem(s) (1) Pneumonia due to COVID-19 virus SNOMED Code(s): 500395890849523691 ICD Code: U07.1 - COVID-19; J12.82 - PNEUMONIA DUE TO CORONAVIRUS DISEASE 2018 Status: Acute (2) Acute respiratory failure due to COVID-19 SNOMED Code(s): 997756736 ICD Code: U07.1 - COVID-19; J96.00 - ACUTE RESPIRATORY FAILURE, UNSP W HYPOXIA OR HYPERCAPNIA Status: Acute (3) Pulmonary embolism on right SNOMED Code(s): 91070176 ICD Code: I26.99 - OTHER PULMONARY EMBOLISM WITHOUT ACUTE COR PULMONALE Status: Acute (4) Diabetes mellitus type 2 in obese SNOMED Code(s): 71606805 ICD Code: E11.69 - TYPE 2 DIABETES MELLITUS WITH OTHER SPECIFIED COMPLICATION; E66.9 - OBESITY, UNSPECIFIED Status: Acute - Patient Summary/Data Hospital Course: Gene presented to the emergency room with progressive weakness, shortness of breath and cough. Work-up in the emergency room was suggestive of COVID-19 pneumonia complicated by acute respiratory failure with hypoxia. He had a significant elevation of his D-dimer as well as CRP. Given the very high D- dimer he was started on full dose enoxaparin. A CT pulmonary angiogram was planned. He was admitted to the hospital for further management of Covid pneumonia with hypoxic respiratory failure. After admission the CT pulmonary angiogram was completed and did show evidence for right-sided pulmonary emboli. We did continue him on therapeutic dosing of enoxaparin for the first couple of days. He was also managed with dexamethasone and remdesivir. He completed his 5 days of remdesivir without incident. We transitioned him from enoxaparin to rivaroxaban. He has tolerated this well. He has remained hypoxic throughout the week but has had stable oxygen requirements. Symptomatically he has been improving with less dyspnea and improving functional status and energy. His appetite has improved. His D-dimer has been trending down. His CRP has been trending down. He does continue to require supplemental oxygen. Since he has been stable for several days I think he is safe for discharge home at this time. He will require home oxygen for the foreseeable future. Hopefully this can be weaned over the next few weeks. I believe he has completed adequate therapy with steroids and these will not be continued at the time of discharge. He has completed his 5 days of remdesivir as mentioned above. He will remain on the rivaroxaban as an anticoagulant. I would recommend that he quarantine until the which would complete 14 days of quarantine for moderate illness. Also noted during the hospital stay was significant hyperglycemia. Hemoglobin A1c was obtained and was 7.9 strongly suggestive of type 2 diabetes mellitus. We did start him on Metformin and he has tolerated this well. He has received some diabetic education and information about type 2 diabetes. We have seen improvement in his blood sugars throughout the course of the hospital stay. The plan at the time of discharge is for him to go home with twice daily Metformin. He will be following up with diabetic education once he has completed his quarantine for Covid. - Patient Instructions Diet: Diabetic Diet Activity: As Tolerated Showering/Bathing: May Shower Other/Special Instructions: 1. You were in the hospital for management of COVID- 19 pneumonia complicated by acute respiratory failure with hypoxia as well as right-sided pulmonary emboli (blood clots in your lung). Your condition has been improving with therapy provided in the hospital. You have completed adequate treatment with steroids and remdesivir. You do continue to require supplemental oxygen and I recommend that you use 2 L/min at home. Hopefully over the next several weeks we can wean this oxygen down and eventually off. Because of the pulmonary emboli related to the infection I recommend rivaroxaban (Xarelto) 20 mg daily at suppertime. The plan is for at least 3 and possibly up to 6 months of treatment depending on how you recover after the hospital stay. 2. During the hospital stay we discovered that you have type 2 diabetes mellitus. We have initiated diabetic education in the hospital. We have provided some written information. We do have a follow-up set up with Erica who is our cosmetology educator. I recommend Metformin 1000 mg twice daily with breakfast and supper to help treat the type 2 diabetes mellitus. 3. Follow up as scheduled with your primary care and cosmetology educator. - Discharge Plan *PRESCRIPTION DRUG MONITORING PROGRAM REVIEWED*: Not Applicable *COPY OF PRESCRIPTION DRUG MONITORING REPORT IN PATIENT TAMARA: Not Applicable Prescriptions/Med Rec: metFORMIN [Glucophage] 1,000 mg PO BIDMEALS #60 tab Rivaroxaban [Xarelto] 20 mg PO WITHDINNER #30 tablet Home Medications: Home Meds Rivaroxaban [Xarelto] 20 mg PO WITHDINNER #30 tablet 04/28/21 [Rx] metFORMIN [Glucophage] 1,000 mg PO BIDMEALS #60 tab 04/28/21 [Rx] Oxygen Therapy Mode: Nasal Cannula Oxygen Flow Rate (L/min): 2 Patient Handouts: Hypoxia, Fall Prevention in the Home, Adult, [id number], COVID-19, Carbohydrate Counting for Diabetes Mellitus, Adult, Diabetes Mellitus and Nutrition, Adult Referrals: Rashaad Mckeon Sr, MD [Physician] - Erica Dover [Registered Dietitian] - 05/07/21 12:00 pm - Discharge Summary/Plan Comment DC Time >30 min.: Yes Total # of Minutes for Discharge Time: 45-home oxygen and diabetes discussion - Patient Data Vitals - Most Recent: Last Vital Signs Temp 35.9 C L 04/28/21 10:52 Pulse 85 04/28/21 10:52 Resp 18 04/28/21 10:52 BP 110/63 04/28/21 10:52 Pulse Ox 96 04/28/21 10:52 Weight - Most Recent: 93.485 kg Lab Results - Last 24 hrs: Laboratory Results - last 24 hr 04/27/21 04/27/21 04/27/21 Range/Units 11:41 16:34 20:54 POC Glucose 191 H 229 H 234 H (74-106) mg/dL 04/28/21 04/28/21 Range/Units 07:29 11:23 POC Glucose 245 H 284 H (74-106) mg/dL Med Orders - Current: Current Medications Acetaminophen (Acetaminophen 325 Mg Tab) 650 mg PO Q4H PRN PRN Reason: Pain (Mild 1-3)/fever Benzonatate (Benzonatate 100 Mg Cap) 100 mg PO Q8H PRN PRN Reason: Cough Last Admin: 04/22/21 23:03 Dose: 100 mg Documented by: Dexamethasone (Dexamethasone 2 Mg Tab) 6 mg PO Q24H [facility] Last Admin: 04/27/21 17:06 Dose: 6 mg Documented by: Insulin Human Lispro (Insulin Lispro 100 Unit/Ml 3 Ml Kwikpen) 0 unit SUBCUT QIDACANDBED [facility]; Protocol Last Admin: 04/28/21 07:50 Dose: 4 units Documented by: Metformin HCl (Metformin 500 Mg Tab) 500 mg PO BIDMEALS [facility] Last Admin: 04/28/21 07:50 Dose: 500 mg Documented by: Ondansetron HCl (Ondansetron 4 Mg/2 Ml Sdv) 4 mg IV Q4H PRN PRN Reason: Nausea/Vomiting Polyethylene Glycol (Polyethylene Glycol 3350 Powder 17 Gm Packet) 17 gm PO DAILY PRN PRN Reason: Constipation Rivaroxaban (Rivaroxaban 15 Mg Tab) 15 mg PO Q12H [facility] Last Admin: 04/28/21 06:12 Dose: 15 mg Documented by: Sodium Chloride (Sodium Chloride 0.9% 10 Ml Syringe) 10 ml FLUSH ASDIRECTED PRN PRN Reason: Keep Vein Open Last Admin: 04/21/21 16:18 Dose: 10 ml Documented by: Discontinued Medications Dexamethasone (Dexamethasone 4 Mg/Ml Sdv) 6 mg IVPUSH Q24H [facility] Last Admin: 04/25/21 15:51 Dose: 6 mg Documented by: Enoxaparin Sodium (Enoxaparin 100 Mg/1 Ml Syringe) 100 mg SUBCUT Q12H [facility] Last Admin: 04/23/21 03:49 Dose: 100 mg Documented by: Enoxaparin Sodium (Enoxaparin 100 Mg/1 Ml Syringe) 90 mg SUBCUT Q12H [facility] Stop: 04/23/21 20:00 Last Admin: 04/23/21 17:06 Dose: 90 mg Documented by: Sodium Chloride (Normal Saline) 100 mls @ 3.5 mls/sec IV ASDIRECTED [facility] Stop: 04/21/21 14:01 Last Admin: 04/21/21 16:18 Dose: 4 mls/sec Documented by: Remdesivir 200 mg/ Sodium (Chloride) 250 mls @ 250 mls/hr IV ONETIME ONE Stop: 04/21/21 16:59 Last Admin: 04/21/21 16:01 Dose: 250 mls/hr Documented by: Remdesivir 100 mg/ Sodium (Chloride) 100 mls @ 100 mls/hr IV Q24H [facility] Stop: 04/25/21 16:59 Last Admin: 04/25/21 15:52 Dose: 100 mls/hr Documented by: Ferric Sodium Gluconate Complex 125 mg/ Sodium Chloride 110 mls @ 55 mls/hr IV ONETIME ONE Stop: 04/24/21 12:59 Last Admin: 04/24/21 11:14 Dose: 55 mls/hr Documented by: Ferric Sodium Gluconate Complex 125 mg/ Sodium Chloride 110 mls @ 100 mls/hr IV ONETIME ONE Stop: 04/25/21 12:05 Last Admin: 04/25/21 11:55 Dose: 100 mls/hr Documented by: Iopamidol (Iopamidol 755 Mg/Ml 100 Ml Bottle) 78 ml IV . DIRECTED [facility] Stop: 04/21/21 15:00 Last Admin: 04/21/21 16:18 Dose: 78 ml Documented by: Sodium Chloride (Sodium Chloride 0.9% 10 Ml Syringe) 10 ml FLUSH ASDIRECTED PRN PRN Reason: Keep Vein Open Sodium Chloride (Sodium Chloride 0.9% 10 Ml Syringe) 10 ml FLUSH ONETIME ONE Stop: 04/21/21 13:59 Last Admin: 04/21/21 15:56 Dose: 10 ml Documented by:
== END 2021-04-28 12:55 | disposition home or self-care (01) | DRG 177 ==
LOC: JP.ED 10:45 → JP.2SS 12:45
PROVIDERS: ADMIT Hospitalist; ATTEND Internal Medicine
PROC: XW033E5 Introduction of Remdesivir Anti-infective into Peripheral Vein, Percutaneous Approach, New Technology Group 5 (ICD-10-PCS; principal; 2021-04-21)
PROC: 3E0333Z Introduction of Anti-inflammatory into Peripheral Vein, Percutaneous Approach (ICD-10-PCS; 2021-04-21)
PROC: 3E0DX3Z Introduction of Anti-inflammatory into Mouth and Pharynx, External Approach (ICD-10-PCS; 2021-04-26)
DX: U07.1 COVID-19 (principal); J12.82 Pneumonia due to coronavirus disease 2019; J96.01 Acute respiratory failure with hypoxia; I26.99 Other pulmonary embolism without acute cor pulmonale; E11.69 Type 2 diabetes mellitus with other specified complication; E66.9 Obesity, unspecified; D50.9 Iron deficiency anemia, unspecified; E11.65 Type 2 diabetes mellitus with hyperglycemia; Z68.34 Body mass index [BMI] 34.0-34.9, adult
CPT/HCPCS: 0241U; 36415; 36430; 71275; 80048; 80053; 81001; 82728; 82947; 83036; 83550; 85025; 85027; 85379; 86140; 86850; 86900; 86901; 86920; 86922; 94762; 99221; 99232; 99233; 99239; 99285-25; A9270-GY; J1100; J1650; J1815; J2916; J7050; J8540; P9016; Q9967